=== PATIENT | male | born 1970 | race Caucasian/White ===

== ENCOUNTER 2017-08-18 23:11 | Emergency (ER) | payer SELFPAY ==
[2016-09-27 10:08] VITALS: Ht 185.4 cm; Wt 113.4 kg
[~2017-08-18] VITALS: Ht 185.4 cm; Wt 113.4 kg
[~2017-08-18 23:11] MED LIST: ATOR20TA22 PO; ATOR20TA65 PO; DIA5 PO; DIAZ-305 PO; FOL1 PO; HYDR-2966 PO; LORA-1456 PO; MULT-1379 PO; MULT-865 PO; MVM PO; NALT50TA15 PO; PRAV40TA77 PO; PROM-110 PO; SERT-184 PO; THIA50TA11 PO; TRAZ-156 PO
[2017-08-19] MEDS ORDERED: THIAMINE HCL(*) 200 MG/2 ML IN 100 MG, FOLIC ACID(*) 50 MG/10 ML INJ 1 MG, MULTIVITAMIN... IV ONE (01:30)
[2017-08-19] MEDS ORDERED: DIAZEPAM 10 MG TAB PO ONE (01:30)
[2017-08-19 01:47] LABS: PLATELET COUNT, AUTOMATED 242 K/uL (150-450)
--- NOTE | 2017-08-19 03:04 | ER Report ---
History and Physical Time Seen By MD: 01:00 Hx. of Stated Complaint: PT REPORTS THAT HE GOT OUT OF REHAB IN MAY. STARTED DRINKING AGAIN. IS WORRIED ABOUT HAVING SEIZURES. DOES NOT WANT TO GO BACK TO S. HPI/ROS History of alcohol use and abuse with multiple failed rehabilitation attempts. He was most recently discharged from inpatient rehabilitation in May. States he started drinking daily again in early June. Presents to the emergency department stating that he is trying to self detox and he has been experiencing facial twitching which makes him more in that he is going to go into DTs. Says he last drank 13 hours ago. Does not want to go to detox and behavioral health, and does not want to go back to inpatient rehabilitation. Remainder of the 14 system rev: Yes Allergies: Coded Allergies: No Known Drug Allergies (Verified , 08/18/17) Home Meds Discontinued Reported Medications Trazodone Hcl (TRAZODONE HCL) 50 Mg Tablet, 50-150 MG PO QHS 04/27/17 Sertraline Hcl (SERTRALINE HCL) 50 Mg Tablet, 150 MG PO QAM, TAB 06/25/16 Reviewed Nurses Notes: Yes Old Medical Records Reviewed: Yes Hx Smoking: No Smoking Status: Never Smoker Exposure to Second Hand Smoke?: No Hx Substance Use Disorder: Yes Hx Alcohol Use: Yes Constitutional Vital Sign - Last 24 Hours 08/18/17 08/18/17 08/18/17 08/19/17 23:19 23:30 23:45 00:00 Temp 99.6 Pulse 117 106 101 Resp 14 B/P (MAP) 148/117 131/99 (110) 127/82 (97) Pulse Ox 98 91 89 O2 Delivery Room Air 08/19/17 08/19/17 08/19/17 08/19/17 00:30 00:45 01:00 01:07 Pulse 97 98 B/P (MAP) 133/86 (102) 135/94 (108) Pulse Ox 91 92 95 08/19/17 08/19/17 01:35 01:42 Pulse 106 Resp 15 B/P (MAP) 156/104 (121) Pulse Ox 92 Physical Exam General Appearance: The patient is alert, has no immediate need for airway protection. Appears intoxicated Respiratory: Chest is non tender, lungs are clear to auscultation. Cardiac: regular rate and rhythm Gastrointestinal: Abdomen is soft and non tender, no masses, bowel sounds normal. Extremities have full range of motion and are non tender. Tremulous Skin: Multiple areas of wounds at different stages of healing DIFFERENTIAL DIAGNOSIS: After history and physical exam differential diagnosis was considered for acute alcohol intoxication, alcohol withdrawal, other ingestions Medical Decision Making Data Points Result Diagram: 08/19/1713908/19/17139 Laboratory Hematology Test 08/19/17 01:40 Red Blood Count 5.94 M/uL (4.00-5.60) Mean Corpuscular Volume 92.1 fL (80.0-96.0) Mean Corpuscular Hemoglobin 31.6 pg (26.0-33.0) Mean Corpuscular Hemoglobin Concent 34.3 g/dL (32.0-36.0) Red Cell Distribution Width 13.4 % (11.5-14.5) Mean Platelet Volume 7.6 fL (7.2-11.1) Neutrophils (%) (Auto) 56.5 % (39.4-72.5) Lymphocytes (%) (Auto) 34.3 % (17.6-49.6) Monocytes (%) (Auto) 8.0 % (4.1-12.4) Eosinophils (%) (Auto) 0.2 % (0.4-6.7) Basophils (%) (Auto) 1.0 % (0.3-1.4) Nucleated RBC Relative Count (auto) 0.1 /100WBC Neutrophils # (Auto) 4.4 K/uL (2.0-7.4) Lymphocytes # (Auto) 2.7 K/uL (1.3-3.6) Monocytes # (Auto) 0.6 K/uL (0.3-1.0) Eosinophils # (Auto) 0.0 K/uL (0.0-0.5) Basophils # (Auto) 0.1 K/uL (0.0-0.1) Nucleated RBC Absolute Count (auto) 0.01 K/uL Sodium Level 144 mmol/L (137-145) Potassium Level 4.0 mmol/L (3.5-5.0) Chloride Level 102 mmol/L (98-107) Carbon Dioxide Level 25 mmol/L (22-30) Blood Urea Nitrogen 13 mg/dl (9-21) Creatinine 0.90 mg/dl (0.66-1.25) Glomerular Filtration Rate Calc > 60.0 Random Glucose 117 mg/dl (75-110) Calcium Level 8.9 mg/dl (8.4-10.2) Magnesium Level 2.0 mg/dl (1.7-2.2) Total Bilirubin 1.0 mg/dl (0.2-1.3) Aspartate Amino Transf (AST/SGOT) 66 U/L (0-35) Alanine Aminotransferase (ALT/SGPT) 67 U/L (0-56) Alkaline Phosphatase 125 U/L (0-126) Total Protein 8.4 gm/dl (6.3-8.2) Albumin 4.6 g/dl (3.5-5.0) Serum Alcohol 329 mg/dl Chemistry Test 08/19/17 01:40 White Blood Count 7.8 k/uL (4.5-11.0) Red Blood Count 5.94 M/uL (4.00-5.60) Hemoglobin 18.8 g/dL (14.0-18.0) Hematocrit 54.7 % (42.0-52.0) Mean Corpuscular Volume 92.1 fL (80.0-96.0) Mean Corpuscular Hemoglobin 31.6 pg (26.0-33.0) Mean Corpuscular Hemoglobin Concent 34.3 g/dL (32.0-36.0) Red Cell Distribution Width 13.4 % (11.5-14.5) Platelet Count 242 K/uL (150-450) Mean Platelet Volume 7.6 fL (7.2-11.1) Neutrophils (%) (Auto) 56.5 % (39.4-72.5) Lymphocytes (%) (Auto) 34.3 % (17.6-49.6) Monocytes (%) (Auto) 8.0 % (4.1-12.4) Eosinophils (%) (Auto) 0.2 % (0.4-6.7) Basophils (%) (Auto) 1.0 % (0.3-1.4) Nucleated RBC Relative Count (auto) 0.1 /100WBC Neutrophils # (Auto) 4.4 K/uL (2.0-7.4) Lymphocytes # (Auto) 2.7 K/uL (1.3-3.6) Monocytes # (Auto) 0.6 K/uL (0.3-1.0) Eosinophils # (Auto) 0.0 K/uL (0.0-0.5) Basophils # (Auto) 0.1 K/uL (0.0-0.1) Nucleated RBC Absolute Count (auto) 0.01 K/uL Glomerular Filtration Rate Calc > 60.0 Calcium Level 8.9 mg/dl (8.4-10.2) Magnesium Level 2.0 mg/dl (1.7-2.2) Total Bilirubin 1.0 mg/dl (0.2-1.3) Aspartate Amino Transf (AST/SGOT) 66 U/L (0-35) Alanine Aminotransferase (ALT/SGPT) 67 U/L (0-56) Alkaline Phosphatase 125 U/L (0-126) Total Protein 8.4 gm/dl (6.3-8.2) Albumin 4.6 g/dl (3.5-5.0) Serum Alcohol 329 mg/dl Toxicology Test 08/19/17 01:40 Serum Alcohol 329 mg/dl ED Course/Re-evaluation ED Course Presents to the emergency department stating that he is trying to self detox from alcohol and is feeling shaky and experiencing muscle twitching and is worried he is going into DTs. Said he had not drank for over 12 hours. Alcohol level in the 300s. Patient exhibits jerking movements, given alcohol level not consistent with DTs. He is now clinically sober and has a ride home with his mom who will pick him up from the emergency department. I encouraged him to be admitted for detox and to return to inpatient rehabilitation, but the patient refused. Decision to Disposition Date: Aug 19, 2017 Decision to Disposition Time: 03:02 Depart Departure Latest Vital Signs Vital Signs Date Time Temp Pulse Resp B/P (MAP) Pulse Ox O2 Delivery O2 Flow Rate FiO2 08/19/17 01:42 106 15 92 08/19/17 01:35 156/104 (121) 08/18/17 23:19 99.6 Room Air Impression: Primary Impression: Alcohol dependence syndrome Condition: Improved Disposition: HOME OR SELF-CARE New Scripts No Active Prescriptions or Reported Meds Patient Instructions: Alcohol Dependence (ED) Problem Qualifiers Primary Impression: Alcohol dependence syndrome Substance use status: with intoxication Complication of substance-induced condition: uncomplicated Qualified Codes: F10.220 - Alcohol dependence with intoxication, uncomplicated NEELAM MAXWELL MD Aug 19, 2017 03:04
[2017-08-19 03:15] VITALS: BP 136/88
== END 2017-08-19 03:25 | disposition home or self-care (01) ==
LOC: ER 23:21
DX: F10.220 Alcohol dependence with intoxication, uncomplicated (principal)
CPT/HCPCS: 80320; 83735; 85025; 96365; 99284; J3411; J3475; J7030; 82040; 82247; 82310; 82374; 82435; 82565; 82947; 84075; 84132; 84155; 84295; 84450; 84460; 84520

== ENCOUNTER 2018-02-23 13:21 | Emergency (ER) | payer SELFPAY ==
[2016-09-27 10:08] VITALS: BMI 37.6
[~2018-02-23 13:21] MED LIST changes: -TRAZ-156 PO; +TRAZ50TA34 PO
[2018-02-23] MEDS ORDERED: NALT50TA15 PO (13:39)
[2018-02-23] MEDS ORDERED: SERT-181 PO (13:39)
[2018-02-23] MEDS ORDERED: THIAMINE HCL(*) 200 MG/2 ML IN 100 MG, FOLIC ACID(*) 50 MG/10 ML INJ 1 MG, MULTIVITAMIN... IV ONE (13:39)
[2018-02-23] MEDS ORDERED: DIAZEPAM 50 MG/10 ML MDV IVP ONE (13:40)
--- NOTE | 2018-02-23 13:40 | ER Report ---
History and Physical Time Seen By MD: 13:40 Hx. of Stated Complaint: pt has been drinking about a 5th of whiskey daily for the past 7 days. pt states he has a drinking problem and has been up to [facility] for detox in the past. HPI/ROS Chief Complaint: "detox" HPI: 47-year-old male presents to the Emergency Department today after failing to detox from alcohol in the home setting. He reports a long history of alcohol abuse with binge drinking starting when he was [id number]. States, he has attempted to stop drinking multiple times and has stayed in [facility] three times in the past. Reports drinking a "fifth of alcohol per day." He reports he started experiencing chest tightness and inability to swallow at which point he decided to come into the ER. The chest pain and difficulty swallowing resolved spontaneously and he is not currently feeling symptoms. Patient denies any shortness of breath, any pain with inspiration. Patient states that he was mostly concerned because he was unable swallow. ROS: Respiratory: No cough, no dyspnea. Cardiovascular: As noted above Gastrointestinal: As noted above Musculoskeletal: No back pain. Allergies: Coded Allergies: No Known Drug Allergies (Verified , 08/18/17) Home Meds Reported Medications Melatonin (MELATONIN) 10 Mg Tablet, 10 MG PO QHS 02/23/18 Naltrexone Hcl (NALTREXONE HCL) 50 Mg Tablet, 50 MG PO QDAY 02/23/18 Sertraline Hcl (SERTRALINE HCL) 100 Mg Tablet, 150 MG PO QDAY, TAB 02/23/18 Past Medical/Surgical History Patient has a past medical history of seizures, headaches, hypertension, hyperlipidemia, reflux, tinnitus, substance abuse, alcohol abuse, depression, anxiety, cutting. Patient has surgical history of left hand surgery, left knee surgery, LASIK surgery. Reviewed Nurses Notes: Yes Hx Smoking: No Smoking Status: Never Smoker Exposure to Second Hand Smoke?: No Hx Substance Use Disorder: Yes Hx Alcohol Use: Yes Constitutional Vital Sign - Last 24 Hours 02/23/18 02/23/18 02/23/18 02/23/18 13:25 13:36 13:40 13:41 Temp 98.1 Pulse 148 84 86 Resp 22 B/P (MAP) 145/100 (115) 145/100 (115) Pulse Ox 92 96 02/23/18 02/23/18 02/23/18 02/23/18 13:51 14:00 14:06 14:21 Pulse 90 86 85 B/P (MAP) 154/104 (121) Pulse Ox 91 93 93 02/23/18 02/23/18 02/23/18 02/23/18 14:30 14:51 14:56 15:00 Pulse 79 77 B/P (MAP) 146/93 (110) 140/87 (104) Pulse Ox 94 95 02/23/18 02/23/18 02/23/18 02/23/18 15:11 15:26 15:30 15:41 Pulse 78 83 81 B/P (MAP) 144/92 (109) Pulse Ox 94 88 96 Intake and Output 02/23/18 02/23/18 02/24/18 14:59 22:59 06:59 Intake Total 850 ml Balance 850 ml Physical Exam General Appearance: The patient is alert, has no immediate need for airway protection and no current signs of toxicity. Respiratory: Chest is non tender, lungs are clear to auscultation. Cardiac: regular rate and rhythm Gastrointestinal: Abdomen is soft and non tender, no masses, bowel sounds normal. Musculoskeletal: Neck: Neck is supple and non tender. Extremities have full range of motion and are non tender. Skin: No rashes or lesions. DIFFERENTIAL DIAGNOSIS: After history and physical exam differential diagnosis was considered for depression, alcohol abuse, reflux, [place], pneumonia. Medical Decision Making Data Points Result Diagram: 02/23/18 1335 02/23/18 1335 Laboratory Hematology Test 02/23/18 13:23 02/23/18 13:35 Urine Color Yellow Urine Clarity Clear Urine pH 7.0 pH (4.8-9.5) Urine Specific [place] 1.009 Urine Protein 100 mg/dL (NEGATIVE) Urine Glucose (UA) Negative mg/dL (NEGATIVE) Urine Ketones Negative mg/dL (NEGATIVE) Urine Blood Negative (NEGATIVE) Urine Nitrite Negative (NEGATIVE) Urine Bilirubin Negative (NEGATIVE) Urine Urobilinogen Negative mg/dL (0.2-1.9) Urine Leukocyte Esterase Negative (NEGATIVE) Urine RBC <1 /HPF (0-2/HPF) Urine WBC 1 /HPF (0-5/HPF) Urine Squamous Epithelial Cells Moderate /LPF (</=FEW) Urine Bacteria Negative /HPF (NONE-FEW) Urine Mucus None /HPF (NONE-FEW) Urine Opiates Screen Negative Urine Barbiturates Screen Negative Ur Tricyclic Antidepressants Screen Negative Urine Phencyclidine Screen Negative Urine Amphetamines Screen Negative Urine Benzodiazepines Screen Negative Urine Cocaine Screen Negative Urine Cannabinoids Screen Negative Red Blood Count 5.29 M/uL (4.00-5.60) Mean Corpuscular Volume 92.4 fL (80.0-96.0) Mean Corpuscular Hemoglobin 32.0 pg (26.0-33.0) Mean Corpuscular Hemoglobin Concent 34.6 g/dL (32.0-36.0) Red Cell Distribution Width 13.6 % (11.5-14.5) Mean Platelet Volume 7.9 fL (7.2-11.1) Neutrophils (%) (Auto) 80.0 % (39.4-72.5) Lymphocytes (%) (Auto) 13.5 % (17.6-49.6) Monocytes (%) (Auto) 5.8 % (4.1-12.4) Eosinophils (%) (Auto) 0.1 % (0.4-6.7) Basophils (%) (Auto) 0.6 % (0.3-1.4) Nucleated RBC Relative Count (auto) 0.2 /100WBC Neutrophils # (Auto) 6.0 K/uL (2.0-7.4) Lymphocytes # (Auto) 1.0 K/uL (1.3-3.6) Monocytes # (Auto) 0.4 K/uL (0.3-1.0) Eosinophils # (Auto) 0.0 K/uL (0.0-0.5) Basophils # (Auto) 0.0 K/uL (0.0-0.1) Nucleated RBC Absolute Count (auto) 0.01 K/uL Sodium Level 141 mmol/L (137-145) Potassium Level 3.5 mmol/L (3.5-5.0) Chloride Level 100 mmol/L (98-107) Carbon Dioxide Level 21 mmol/L (22-30) Blood Urea Nitrogen 8 mg/dl (9-21) Creatinine 0.70 mg/dl (0.66-1.25) Glomerular Filtration Rate Calc > 60.0 Random Glucose 106 mg/dl (75-110) Calcium Level 8.8 mg/dl (8.4-10.2) Magnesium Level 1.8 mg/dl (1.7-2.2) Total Bilirubin 1.2 mg/dl (0.2-1.3) Aspartate Amino Transf (AST/SGOT) 103 U/L (0-35) Alanine Aminotransferase (ALT/SGPT) 100 U/L (0-56) Alkaline Phosphatase 106 U/L (0-126) Troponin I < 0.012 ng/ml Total Protein 7.7 g/dl (6.3-8.2) Albumin 4.6 g/dl (3.5-5.0) Thyroid Stimulating Hormone (TSH) 4.12 uIU/ml (0.46-4.68) Salicylates Level < 10 mg/L Salicylate Last Dose Date unk Acetaminophen Level < 10 ug/ml Serum Alcohol 93 mg/dl Chemistry Test 02/23/18 13:23 02/23/18 13:35 Urine Color Yellow Urine Clarity Clear Urine pH 7.0 pH (4.8-9.5) Urine Specific [place] 1.009 Urine Protein 100 mg/dL (NEGATIVE) Urine Glucose (UA) Negative mg/dL (NEGATIVE) Urine Ketones Negative mg/dL (NEGATIVE) Urine Blood Negative (NEGATIVE) Urine Nitrite Negative (NEGATIVE) Urine Bilirubin Negative (NEGATIVE) Urine Urobilinogen Negative mg/dL (0.2-1.9) Urine Leukocyte Esterase Negative (NEGATIVE) Urine RBC <1 /HPF (0-2/HPF) Urine WBC 1 /HPF (0-5/HPF) Urine Squamous Epithelial Cells Moderate /LPF (</=FEW) Urine Bacteria Negative /HPF (NONE-FEW) Urine Mucus None /HPF (NONE-FEW) Urine Opiates Screen Negative Urine Barbiturates Screen Negative Ur Tricyclic Antidepressants Screen Negative Urine Phencyclidine Screen Negative Urine Amphetamines Screen Negative Urine Benzodiazepines Screen Negative Urine Cocaine Screen Negative Urine Cannabinoids Screen Negative White Blood Count 7.5 k/uL (4.5-11.0) Red Blood Count 5.29 M/uL (4.00-5.60) Hemoglobin 16.9 g/dL (14.0-18.0) Hematocrit 48.9 % (42.0-52.0) Mean Corpuscular Volume 92.4 fL (80.0-96.0) Mean Corpuscular Hemoglobin 32.0 pg (26.0-33.0) Mean Corpuscular Hemoglobin Concent 34.6 g/dL (32.0-36.0) Red Cell Distribution Width 13.6 % (11.5-14.5) Platelet Count 228 K/uL (150-450) Mean Platelet Volume 7.9 fL (7.2-11.1) Neutrophils (%) (Auto) 80.0 % (39.4-72.5) Lymphocytes (%) (Auto) 13.5 % (17.6-49.6) Monocytes (%) (Auto) 5.8 % (4.1-12.4) Eosinophils (%) (Auto) 0.1 % (0.4-6.7) Basophils (%) (Auto) 0.6 % (0.3-1.4) Nucleated RBC Relative Count (auto) 0.2 /100WBC Neutrophils # (Auto) 6.0 K/uL (2.0-7.4) Lymphocytes # (Auto) 1.0 K/uL (1.3-3.6) Monocytes # (Auto) 0.4 K/uL (0.3-1.0) Eosinophils # (Auto) 0.0 K/uL (0.0-0.5) Basophils # (Auto) 0.0 K/uL (0.0-0.1) Nucleated RBC Absolute Count (auto) 0.01 K/uL Glomerular Filtration Rate Calc > 60.0 Calcium Level 8.8 mg/dl (8.4-10.2) Magnesium Level 1.8 mg/dl (1.7-2.2) Total Bilirubin 1.2 mg/dl (0.2-1.3) Aspartate Amino Transf (AST/SGOT) 103 U/L (0-35) Alanine Aminotransferase (ALT/SGPT) 100 U/L (0-56) Alkaline Phosphatase 106 U/L (0-126) Troponin I < 0.012 ng/ml Total Protein 7.7 g/dl (6.3-8.2) Albumin 4.6 g/dl (3.5-5.0) Thyroid Stimulating Hormone (TSH) 4.12 uIU/ml (0.46-4.68) Salicylates Level < 10 mg/L Salicylate Last Dose Date unk Acetaminophen Level < 10 ug/ml Serum Alcohol 93 mg/dl Toxicology Test 02/23/18 13:23 02/23/18 13:35 Urine Opiates Screen Negative Urine Barbiturates Screen Negative Ur Tricyclic Antidepressants Screen Negative Urine Phencyclidine Screen Negative Urine Amphetamines Screen Negative Urine Benzodiazepines Screen Negative Urine Cocaine Screen Negative Urine Cannabinoids Screen Negative Salicylates Level < 10 mg/L Salicylate Last Dose Date unk Acetaminophen Level < 10 ug/ml Serum Alcohol 93 mg/dl Urinalysis Test 02/23/18 13:23 Urine Color Yellow Urine Clarity Clear Urine pH 7.0 pH (4.8-9.5) Urine Specific [place] 1.009 Urine Protein 100 mg/dL (NEGATIVE) Urine Glucose (UA) Negative mg/dL (NEGATIVE) Urine Ketones Negative mg/dL (NEGATIVE) Urine Blood Negative (NEGATIVE) Urine Nitrite Negative (NEGATIVE) Urine Bilirubin Negative (NEGATIVE) Urine Urobilinogen Negative mg/dL (0.2-1.9) Urine Leukocyte Esterase Negative (NEGATIVE) Urine RBC <1 /HPF (0-2/HPF) Urine WBC 1 /HPF (0-5/HPF) Urine Squamous Epithelial Cells Moderate /LPF (</=FEW) Urine Bacteria Negative /HPF (NONE-FEW) Urine Mucus None /HPF (NONE-FEW) EKG/Imaging EKG Interpretation 12 lead EKG: Rhythm: normal sinus rhythm with a ventricular rate of 82 bpm [place]: normal QRS: normal ST segments: normal Patient has a prolonged QT with a QT measuring 410 ms Imaging CHEST PA AND LAT Indication: chest pain Comparison: Chest x-ray 09/03/2016. Findings: Lungs: Clear. Mediastinum/pulmonary vasculature: Heart size and pulmonary vasculature are normal. Bones/soft tissues: Normal. IMPRESSION: Clear lungs. Report Dictated By: Gio Rose at 02/23/2018 2:53 PM Report E-Signed By: Gio Rose at 02/23/2018 2:54 PM ED Course/Re-evaluation ED Course Patient was admitted and examined, history and physical were obtained. Differential diagnoses were considered. The normal lab work for a behavioral health admission were done. Also an EKG, chest x-ray and a troponin were done. The labs for the behavioral health admission were unremarkable except the patient did have a an elevated AST of 103, ALT of 100. Troponin was negative. EKG showed a normal sinus rhythm. I believe that the chest pain was likely secondary to gastritis and esophagitis secondary to his binge drinking. I discussed the case with Dr. Paz, psychiatrist, who except the patient for admission. Dr. Paz did ask the patient had been doing any self harm her cutting. There are no signs of that on this evaluation or admission. Decision to Disposition Date: Feb 23, 2018 Decision to Disposition Time: 14:52 Depart Departure Latest Vital Signs Vital Signs Date Time Temp Pulse Resp B/P (MAP) Pulse Ox O2 Delivery O2 Flow Rate FiO2 02/23/18 15:41 81 96 02/23/18 15:30 144/92 (109) 02/23/18 13:25 98.1 22 Impression: Primary Impression: Alcohol dependence syndrome Condition: Condition Unchanged Disposition: XFER TO [facility] Problem Qualifiers Primary Impression: Alcohol dependence syndrome Substance use status: uncomplicated Qualified Codes: F10.20 - Alcohol dependence, uncomplicated CHERRIE SIMON Feb 23, 2018 13:40
[2018-02-23 13:53] LABS: PLATELET COUNT, AUTOMATED 228 K/uL (150-450)
--- NOTE | 2018-02-23 14:15 | EKG ---
[facility]AC[facility] PATIENT NAME: JOSS VEGA : [id number] MR: [id number] V: [id number] EXAM DATE: ORDERING PHYSICIAN: CHERRIE SIMON TECHNOLOGIST: Test Reason : Blood Pressure : / mmHG Vent. Rate : 083 BPM Atrial Rate : 083 BPM P-R Int : 178 ms QRS Dur : 090 ms QT Int : 410 ms P-R-T Axes : 036 027 021 degrees QTc Int : 481 ms Normal sinus rhythm Prolonged QT Abnormal ECG When compared with ECG of 08-NOV-2016 05:54, No significant change was found Confirmed by KAM LÓPEZ ([id number]) on 02/23/2018 9:57:59 PM Referred By: Confirmed By:KAM LÓPEZ
--- NOTE | 2018-02-23 14:57 | RADIOLOGY IMAGING REPORT ---
FACILITY: [facility] PATIENT NAME: Obie Valencia : 1970 MR: [id number] V: [id number] EXAM DATE: ORDERING PHYSICIAN: CHERRIE SIMON TECHNOLOGIST: Location: [facility] [place] Patient: Obie Valencia : 1970 Visit/Account:[id number] Date of Sevice: 02/23/2018 CHEST PA AND LAT Indication: chest pain Comparison: Chest x-ray 09/03/2016. Findings: Lungs: Clear. Mediastinum/pulmonary vasculature: Heart size and pulmonary vasculature are normal. Bones/soft tissues: Normal. IMPRESSION: Clear lungs. Report Dictated By: Gio Rose at 02/23/2018 2:53 PM Report E-Signed By: Gio Rose at 02/23/2018 2:54 PM WSN:[id number]
[2018-02-23 15:30] VITALS: BP 144/92
[2018-02-23] MEDS ORDERED: MELA10TA2 PO (17:49)
[2018-02-26] MEDS ORDERED: THIA100T2 PO (10:23)
== END 2018-02-23 15:58 ==
LOC: ER 13:28
DX: F10.20 Alcohol dependence, uncomplicated (principal)
CPT/HCPCS: 71046; 80305; 80320; 80329; 81001; 83735; 84443; 84484; 85025; 93005; 96365; 96366; 96375; 99284; J3360; J3411; J3475; J7030; 82040; 82247; 82310; 82374; 82435; 82565; 82947; 84075; 84132; 84155; 84295; 84450; 84460; 84520

== ENCOUNTER 2018-02-23 15:01 | Inpatient (IN) | payer SELFPAY ==
[2016-09-27 10:08] VITALS: Ht 185.4 cm; Wt 108.9 kg
[~2018-02-23] VITALS: Ht 185.4 cm; Wt 108.9 kg
[~2018-02-23 15:01] MED LIST changes: +SERT-181 PO
[2018-02-23 16:00] VITALS: BP 167/112
[2018-02-23] MEDS: DIAZEPAM 10 MG TAB PO PRN ×7 (16:24→22:47)
[2018-02-23] MEDS: MAG HYD/AL HYD/SIMETH 30ML UDC PO PRN (16:41)
[2018-02-23] MEDS ORDERED: MELA10TA2 PO (17:49)
[2018-02-23 19:35] VITALS: BP 154/112
[2018-02-23] MEDS: MELATONIN 3 MG TAB PO SCH (21:40)
[2018-02-23 23:10] VITALS: BP 149/97
[2018-02-24 03:50] VITALS: BP 147/100
[2018-02-24 07:55] VITALS: BP 132/81
[2018-02-24] MEDS: FOLIC ACID 1 MG TAB PO SCH (08:13)
[2018-02-24] MEDS: NALTREXONE HCL 50 MG TAB PO SCH (08:13)
[2018-02-24] MEDS: THIAMINE HCL 100 MG TAB PO SCH (08:13)
[2018-02-24] MEDS: MULTIVITAMINS TAB PO SCH (08:13)
[2018-02-24] MEDS: SERTRALINE HCL 50 MG TAB PO SCH (08:14)
[2018-02-24] MEDS: DIAZEPAM 10 MG TAB PO PRN ×3 (08:14→22:05)
[2018-02-24 12:10] VITALS: BP 150/105
[2018-02-24] MEDS: IBUPROFEN 600 MG TAB PO PRN (13:20)
--- NOTE | 2018-02-24 16:28 | HISTORY AND PHYSICAL ---
DATE OF ADMISSION: February 23, 2018 Patient was seen approximately 24 February 2018 at 1200 hours for note concerning this dictation. PRESENTING PROBLEM/CHIEF COMPLAINT Alcohol withdrawal. HISTORY OF PRESENT ILLNESS This is a fairly well-known 47-year-old male, very pleasant, cooperative, notably last admission under similar circumstances was in April 2017. Patient had [facility] out [facility] or five months ago where he had been there for about five weeks. He stayed sober for a week or two until recently drinking. 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 He knows that he cannot drink and drive. Patient wants to get alcohol withdrawal under complete and return to work by Tuesday. 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 Patient denies any other significant concerns of depression at this time. Patient does have a history of underlying persistent depressive disorder and does currently remain on Zoloft. Patient has a history of some cutting behaviors as an adult. Please see previous records. Patient states he is no longer engaging in these behaviors. Patient adamantly denies any suicidal ideation, denies any other psychiatric concerns. MENTAL HEALTH HISTORY Patient has a long history of alcohol use disorder which is severe in nature. Patient has completed substance abuse program in [place] at the [facility] in 2005. He has attended intensive outpatient programs at the [facility] in the past. Patient has most recently completed a stent at [facility] in [place] as well. Patient does continue to see outpatient providers through the [facility] at times. Patient is not believed to be going to [facility] at this time, although he has in the past. Patient has remained on sertraline and naltrexone. He has not been taking trazodone previously prescribed in a few months. Patient denying any suicidal ideation at this time. FAMILY PSYCHIATRIC HISTORY Unknown concerning this patient at time of this dictation. PAST MEDICAL HISTORY Believed to be largely unremarkable at this time. MEDICATIONS Patient not on any medications. ALLERGIES Patient denying any allergies. SOCIAL HISTORY Patient born in [facility]. Father worked in a government job as a civilian. Patient graduated high school in [place]. He was primarily raised [place]. Patient has been living in [place] by himself. He has never , has no children. No significant other currently. Patient has had contact with his sisters and parents in the past who are believed to be living in [place]. 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 Patient has had multiple admissions here, the last in the fall of 2016. 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 He does not have any service-connected disabilities. He does continue to follow up with them. LEGAL HISTORY Significant for history of three DUIs, one in 1986, 1997, and 1999. Patient has spent time in care home for these. He denies felony or other recent charges. SUBSTANCE ABUSE HISTORY Patient continues to drink whiskey at this time. He has previously tried cocaine, crack, and marijuana in the remote past. He has no current use of illicit drugs. Patient denies any experience of sexual, emotional, or physical abuse growing up. PHYSICAL EXAMINATION Please see emergency room note. Notable for: GENERAL: Cooperative 47-year-old male started into alcohol withdrawal. VITAL SIGNS: Temperature is 98.1, pulse 148, respiratory rate 20, blood pressure 145/100, pulse oximetry 92% on room air at time of admission. LABORATORY DATA CBC was unremarkable overall. CMP notable for AST and ALT 103 and 100, both elevated. Troponins were negative. TSH 4.12. Urinalysis unremarkable except for urine protein notable, and toxicology screen negative for substances of abuse with a serum alcohol level of 93 at time of admission. MENTAL STATUS EXAMINATION GENERAL APPEARANCE, BEHAVIOR, AND ATTITUDE: This is a polite, cooperative, 47- year-old male being actively treated for alcohol withdrawal at time of initial interview. No psychomotor agitation or retardation. No bizarre mannerisms or tics. Patient not tearful, making good eye contact. SPEECH: Within normal limits. Regular rate, rhythm, volume, and tone. MOOD: Described as frustrated with alcoholism. AFFECT: Minimally constricted at times and mood congruent. THOUGHT PROCESSES: Logical, goal directed. No loose associations or flight of ideas. THOUGHT CONTENT: Free of auditory or visual hallucinations, ideas of reference , thought broadcasting, delusions, obsessions, compulsions. Patient adamantly denying suicidal or homicidal ideations. SENSORIUM: Clear. COGNITION: Alert and oriented to person, place, time, situation. MEMORY: Immediate, recent, and remote estimated intact. INTELLIGENCE: Average based on interview. INSIGHT AND JUDGMENT: Considered grossly intact in the absence of alcohol use. ASSESSMENT This is a well-known 47-year-old male suffering from longstanding alcohol use. Patient has been to multiple residential treatment programs in the past. At this time, patient wishes to complete alcohol withdrawal and return to working at his new job. Will work with patient to get alcohol withdrawal complete once again and educate patient further on how to abstain from alcohol on an outpatient basis. DIAGNOSES PER DIAGNOSTIC AND STATISTICAL MANUAL OF MENTAL DISORDERS, FIFTH EDITION 1. Alcohol intoxication. 2. Alcohol use disorder, severe. 3. Alcohol withdrawal. 4. History of persisting depressive disorder. 5. Social stressors related to alcohol use. PLAN 1. Admit to the unit. 2. Necessary precautions to be implemented. 3. Patient will participate in individual and group therapy. 4. Medications will be adjusted and titrated accordingly. 5. Collateral information to be obtained as necessary. 6. Estimated length of stay three days. MTDD
[2018-02-24 17:25] VITALS: BP 146/95
[2018-02-24] MEDS: MAG HYD/AL HYD/SIMETH 30ML UDC PO PRN (19:42)
[2018-02-24] MEDS: MELATONIN 3 MG TAB PO SCH (21:30)
[2018-02-24 21:41] VITALS: BP 144/110
[2018-02-25 06:19] VITALS: BP 134/87
[2018-02-25] MEDS: SERTRALINE HCL 50 MG TAB PO SCH (08:22)
[2018-02-25] MEDS: NALTREXONE HCL 50 MG TAB PO SCH (08:22)
[2018-02-25] MEDS: THIAMINE HCL 100 MG TAB PO SCH (08:22)
[2018-02-25] MEDS: MULTIVITAMINS TAB PO SCH (08:22)
[2018-02-25] MEDS: FOLIC ACID 1 MG TAB PO SCH (08:22)
[2018-02-25] MEDS: IBUPROFEN 600 MG TAB PO PRN (08:25)
[2018-02-25 08:38] VITALS: BP 149/102
[2018-02-25] MEDS ORDERED: LOPERAMIDE HCL 2 MG CAP PO PRN (10:10)
[2018-02-25 12:18] VITALS: BP 148/107
--- NOTE | 2018-02-25 14:59 | BHS Progress Note ---
S - Subjective Progress Notes Subjective Pt seen in conference room with team. Pt denies c/o today. Detox is winding down-- last valium was at about 11 last night. BP's still elevated but other signs withdrawal are minimal. We discussed possibility that he may have some underlying hypertension, and he will follow up with [facility]. Discussed barriers to maintaining sobriety for him-- he says he knows he needs to spend less time alone, so we did some talking about ways that might work for him. He is hoping to get back to work on Tuesday-- will need to monitor till he is a full 24 hours out from last valium. He understands that we recommend that he not drive for 24 to 48 hours after discharge, given long half life of valium. Suicidal Ideation: None Homicidal Ideation: None [facility] - Objective Physical Exam Vital Signs Vital Signs 02/24/18 02/25/18 21:41 12:18 Temp 98.1 Pulse 81 Resp 18 B/P (MAP) 148/107 (121) Pulse Ox 95 O2 Delivery Room Air Muscle Strength and Tone: WNL Gait and Station: Steady BH Medications Reviewed: Side Effects, Benefits of Medication Allergies Reviewed: Yes Mental Status Exam General Appearance: Casual, Well Groomed, Good Eye Contact, Cooperative, Polite , Good Interaction Speech: Clear, Spontaneous, Normal Rate, Normal Rhythm, Normal Volume, Normal Tone Mood: Dysthmic/Depressed Affect: Calm, Neutral Thought Process: Organized, Logical, Goal Directed Thought Content: No Suicidal Ideation, No Homicidal Ideation, No Delusions, No Auditory Halllucinations, No Visual Hallucinations, No Thought Broadcasting, No Ideas of Reference, No Obsessions, No Compulsions, No Other Sensorium: Clear Cognition: Alert & Oriented-Person, Alert & Oriented-Place, Alert & Oriented- Time, Mazct-Urxiywba-Fectijehe Memory: Immediate, Recent, Remote Intelligence: Average Insight Judgment: Fair [facility] Assessment and Plan Tfco-ie-Rvie Encounter Date: Feb 25, 2018 [id number] Encounter Time: 10:15 [facility] Plan: Admit to Unit, Necessary Precautions, Individual/Group Therapy, Admin /Titrate Meds, Educate Patient Tobacco Medications: Not Appropriate Condition Problems: (1) Alcohol use disorder, severe, in controlled environment Status: Chronic (2) Alcohol withdrawal Status: Acute MANUELA MARIE MD Feb 25, 2018 14:59
[2018-02-25 16:14] VITALS: BP 117/83
[2018-02-25] MEDS: MELATONIN 3 MG TAB PO SCH (21:31)
[2018-02-26 06:12] VITALS: BP 123/83
[2018-02-26] MEDS: NALTREXONE HCL 50 MG TAB PO SCH (08:43)
[2018-02-26] MEDS: MULTIVITAMINS TAB PO SCH (08:43)
[2018-02-26] MEDS: SERTRALINE HCL 50 MG TAB PO SCH (08:43)
[2018-02-26] MEDS: FOLIC ACID 1 MG TAB PO SCH (08:43)
[2018-02-26] MEDS: THIAMINE HCL 100 MG TAB PO SCH (08:43)
[2018-02-26] MEDS: IBUPROFEN 600 MG TAB PO PRN (08:49)
[2018-02-26] MEDS ORDERED: FOLI-68 PO (10:16)
[2018-02-26] MEDS ORDERED: MULT-7 (10:17)
[2018-02-26] MEDS ORDERED: THIA100T2 PO ×2 (10:23)
[2018-02-26 12:35] VITALS: BP 138/88
--- NOTE | 2018-02-26 14:59 | BHS Discharge Summary ---
[facility] Discharge Summary Ezzx-yo-Dwje Encounter Date: Feb 26, 2018 [id number] Encounter Time: 08:45 Reason-Hosp/Final Diag (DSM-V): (1) Alcohol use disorder, severe, in controlled environment Status: Chronic Hospital Course & Plan: Pt was admitted to [facility] and placed on CIWA protocol using valium for detox. There were no complications. His BP ran high at first but normalized as detox completed. Pt participated actively in [place] activities and therapies, with a focus on sobriety. 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 He wants to follow up with his [facility] for meds and therapy which he does via telemedicine, but he will also look at getting back into face-to- face therapy with a therapist at the [facility], since he is working over there now. At no time during hospital stay did pt verbalize or acknowledge any SI. By Tuesday02/26/18 pt was stable for discharge; he was planning on attending an AA meeting this evening. (2) Alcohol withdrawal Status: Acute Physical Exam Latest Vital Signs Vital Signs 02/26/18 12:35 Temp 97.9 Pulse 66 Resp 16 B/P (MAP) 138/88 (105) Pulse Ox 95 O2 Delivery Room Air Mental Status Exam General Appearance: Casual, Well Groomed, Good Eye Contact, Cooperative, Polite , Good Interaction Speech: Clear, Spontaneous, Normal Rate, Normal Rhythm, Normal Volume, Normal Tone Mood: Dysthmic/Depressed Affect: Calm, Neutral Thought Process: Organized, Logical, Goal Directed Thought Content: No Suicidal Ideation, No Homicidal Ideation, No Delusions, No Auditory Halllucinations, No Visual Hallucinations, No Thought Broadcasting, No Ideas of Reference, No Obsessions, No Compulsions, No Other Sensorium: Clear Cognition: Alert & Oriented-Person, Alert & Oriented-Place, Alert & Oriented- Time, Jcihv-Ttqnqgdw-Fgykoabkw Memory: Immediate, Recent, Remote Intelligence: Average Insight Judgment: Fair Departure Condition: Improved Discharge to: Home Discharge Instructions Home Meds Reported Medications Thiamine Mononitrate (VITAMIN B-1) 100 Mg Tablet, 100 MG PO QAM 02/26/18 Multivits,Ca,Minerals/Iron/FA (Thera M Plus Tablet) 1 Each Tablet, QAM 02/26/18 Folic Acid (FOLIC ACID) 1 Mg Tablet, 1 MG PO QDAY, TAB 02/26/18 Melatonin (MELATONIN) 10 Mg Tablet, 10 MG PO QHS 02/23/18 Naltrexone Hcl (NALTREXONE HCL) 50 Mg Tablet, 50 MG PO QDAY 02/23/18 Sertraline Hcl (SERTRALINE HCL) 100 Mg Tablet, 150 MG PO QDAY, TAB 02/23/18 Discontinued Reported Medications Thiamine Mononitrate (VITAMIN B-1) 100 Mg Tablet, 100 MG PO QAM 02/26/18 Multpiple Antipsychotics Used: No Diet: Regular Activity: As Tolerated Special Instructions: Abstain from alcohol. Follow up with outpatient Therapist and Provider for Therapy and medication management. Follow up with AA. Call the crisis line at [phone] should symptoms return or return to nearest Emergency Department. MANUELA MARIE MD Feb 26, 2018 14:59
== END 2018-02-26 13:07 | disposition home or self-care (01) | DRG 897 ==
LOC: BHS 15:01
PROVIDERS: ADMIT Psychiatry & Neurology Psychiatry; ATTEND Psychiatry & Neurology Psychiatry
DX: F10.230 Alcohol dependence with withdrawal, uncomplicated (principal); F34.1 Dysthymic disorder
CPT/HCPCS: 83036

== ENCOUNTER 2018-06-07 05:32 | Emergency (ER) | payer SELFPAY ==
[2016-09-27 10:08] VITALS: Wt 104.3 kg
[~2018-06-07 05:32] MED LIST changes: +FOLI-68 PO; +MELA10TA2 PO; +MULT-7; +THIA100T2 PO
--- NOTE | 2018-06-07 05:47 | ER Report ---
History and Physical Time Seen By MD: 05:47 HPI/ROS CHIEF COMPLAINT: requesting alcohol detox. HISTORY OF PRESENT ILLNESS: This is a 47 year old male. He is here requesting detox from alcohol. He drinks heavily, about two large bottle daily. Last drink about 2 hours ago, but feeling very shaky at this time. REVIEW OF SYSTEMS: Constitutional: [No fever or chills.] Eyes: [No discharge.] [No vision changes.] ENT: [No sore throat.] [No congestion.] [No hearing changes.] Cardiovascular: [No chest pain.] [No palpitations.] Respiratory: [No cough.] [No shortness of breath.] Gastrointestinal: [No abdominal pain.] [No nausea or vomiting.] [No change in bowel movements.] [No blood in the stool or melena.] Genitourinary: [No dysuria.] [No hematuria.] [No frequency] Musculoskeletal: [No back pain.] [No extremity pain.] Skin: [No rashes.] [No bruising.] Neurological: [No numbness.] [No weakness.] [No headache.] Allergies: Coded Allergies: No Known Drug Allergies (Verified , 08/18/17) Home Meds Reported Medications [liver cleanse] No Conflict Check 06/07/18 Milk Thistle Seed Extract (MILK THISTLE) 140 Mg Capsule, 140 MG PO DAILY, CAPSULE 06/07/18 Multivits,Ca,Minerals/Iron/FA (Thera M Plus Tablet) 1 Each Tablet, QAM 02/26/18 Melatonin (MELATONIN) 10 Mg Tablet, 10 MG PO QHS 02/23/18 Naltrexone Hcl (NALTREXONE HCL) 50 Mg Tablet, 50 MG PO QDAY 02/23/18 Sertraline Hcl (SERTRALINE HCL) 100 Mg Tablet, 150 MG PO QDAY, TAB 02/23/18 Discontinued Reported Medications Thiamine Mononitrate (VITAMIN B-1) 100 Mg Tablet, 100 MG PO QAM 02/26/18 Folic Acid (FOLIC ACID) 1 Mg Tablet, 1 MG PO QDAY, TAB 02/26/18 Hx Smoking: No Smoking Status: Never Smoker Exposure to Second Hand Smoke?: No Hx Substance Use Disorder: Yes Hx Alcohol Use: Yes Constitutional Vital Sign - Last 24 Hours 06/07/18 06/07/18 06/07/18 06/07/18 05:39 05:42 06:00 06:30 Temp 98.3 Pulse 110 Resp 16 B/P (MAP) 127/107 127/107 (114) 97/73 (81) 141/86 (104) Pulse Ox 89 O2 Delivery Room Air 06/07/18 06/07/18 06/07/18 06/07/18 06:32 06:37 06:42 06:52 Pulse 98 101 99 Pulse Ox 90 92 93 87 O2 Delivery Room Air 06/07/18 06/07/18 06/07/18 06/07/18 07:00 07:07 07:22 07:30 Pulse 100 104 B/P (MAP) 119/84 (96) 120/83 (95) Pulse Ox 91 91 06/07/18 06/07/18 06/07/18 06/07/18 07:37 07:42 07:57 08:00 Pulse ??? 106 95 B/P (MAP) ???/??? (1665) Pulse Ox 94 92 06/07/18 06/07/18 06/07/18 06/07/18 08:12 08:27 08:30 08:42 Pulse 92 96 101 B/P (MAP) ???/??? (1665) Pulse Ox 96 94 94 06/07/18 06/07/18 06/07/18 06/07/18 08:57 09:00 09:12 09:27 Pulse 116 104 100 B/P (MAP) ???/??? (1665) Pulse Ox 93 95 96 06/07/18 06/07/18 06/07/18 06/07/18 09:32 09:47 10:02 10:17 Pulse ??? 118 ? Pulse Ox 96 87 06/07/18 06/07/18 10:32 10:47 Pulse ? Intake and Output 06/07/18 06/07/18 06/08/18 15:00 23:00 07:00 Intake Total 1000 ml Balance 1000 ml Physical Exam General Appearance: The patient is alert. He is shaky and having facial tics. Intoxicated. Eyes: Pupils are equal, round. No pallor or icterus. Extraocular movements are i ntact. Reactive to light. ENT: Mucous membranes are moist. Normal oral mucosa. Posterior oropharynx is normal. Neck: Supple and non tender. Respiratory: Lungs are clear to auscultation. Cardiovascular: Regular rate and rhythm. No murmurs, gallops or rubs. Normal capillary refill. Hypertensive. Gastrointestinal: Abdomen is soft and non tender. Nondistended. Normal active bowel sounds. Neurological: Alert and oriented x3. No focal neurologic deficits other than intoxication. Having some complex motor tics in the facial area. Skin: Warm and dry. No rashes. Musculoskeletal: Extremities are nontender. No tenderness in palpation of the cervical, thoracic and lumbar spine. DIFFERENTIAL DIAGNOSIS: After history and physical exam, differential diagnosis was considered for alcohol intoxication, requesting detox Medical Decision Making Data Points Result Diagram: 06/07/18 0416 06/07/18 0416 Laboratory Hematology Test 06/07/18 04:16 06/07/18 10:23 Red Blood Count 5.33 M/uL (4.00-5.60) Mean Corpuscular Volume 94.2 fL (80.0-96.0) Mean Corpuscular Hemoglobin 32.7 pg (26.0-33.0) Mean Corpuscular Hemoglobin Concent 34.7 g/dL (32.0-36.0) Red Cell Distribution Width 13.5 % (11.5-14.5) Mean Platelet Volume 7.7 fL (7.2-11.1) Neutrophils (%) (Auto) 62.1 % (39.4-72.5) Lymphocytes (%) (Auto) 27.0 % (17.6-49.6) Monocytes (%) (Auto) 9.9 % (4.1-12.4) Eosinophils (%) (Auto) 0.1 % (0.4-6.7) Basophils (%) (Auto) 0.9 % (0.3-1.4) Nucleated RBC Relative Count (auto) 0.0 /100WBC Neutrophils # (Auto) 3.8 K/uL (2.0-7.4) Lymphocytes # (Auto) 1.6 K/uL (1.3-3.6) Monocytes # (Auto) 0.6 K/uL (0.3-1.0) Eosinophils # (Auto) 0.0 K/uL (0.0-0.5) Basophils # (Auto) 0.1 K/uL (0.0-0.1) Nucleated RBC Absolute Count (auto) 0.00 K/uL Sodium Level 144 mmol/L (137-145) Potassium Level 3.6 mmol/L (3.5-5.0) Chloride Level 106 mmol/L (98-107) Carbon Dioxide Level 24 mmol/L (22-30) Blood Urea Nitrogen 17 mg/dl (9-21) Creatinine 0.80 mg/dl (0.66-1.25) Glomerular Filtration Rate Calc > 60.0 Random Glucose 115 mg/dl (75-110) Calcium Level 7.8 mg/dl (8.4-10.2) Magnesium Level 2.1 mg/dl (1.7-2.2) Total Bilirubin 0.8 mg/dl (0.2-1.3) Aspartate Amino Transf (AST/SGOT) 387 U/L (0-35) Alanine Aminotransferase (ALT/SGPT) 139 U/L (0-56) Alkaline Phosphatase 132 U/L (0-126) Total Protein 7.3 g/dl (6.3-8.2) Albumin 4.1 g/dl (3.5-5.0) Thyroid Stimulating Hormone (TSH) 3.01 uIU/ml (0.46-4.68) Salicylates Level < 10 mg/L Salicylate Last Dose Date unk Acetaminophen Level < 10 ug/ml Serum Alcohol 370 mg/dl Urine Color Yellow Urine Clarity Clear Urine pH 5.0 pH (4.8-9.5) Urine Specific [place] 1.013 Urine Protein 100 mg/dL (NEGATIVE) Urine Glucose (UA) Negative mg/dL (NEGATIVE) Urine Ketones Negative mg/dL (NEGATIVE) Urine Blood Small (NEGATIVE) Urine Nitrite Negative (NEGATIVE) Urine Bilirubin Negative (NEGATIVE) Urine Urobilinogen Negative mg/dL (0.2-1.9) Urine Leukocyte Esterase Negative (NEGATIVE) Urine RBC 1 /HPF (0-2/HPF) Urine WBC 1 /HPF (0-5/HPF) Urine Squamous Epithelial Cells Few /LPF (</=FEW) Urine Bacteria Few /HPF (NONE-FEW) Urine Hyaline Casts Many /LPF (NONE-FEW) Urine Mucus Few /HPF (NONE-FEW) Urine Opiates Screen Negative Urine Barbiturates Screen Negative Ur Tricyclic Antidepressants Screen Negative Urine Phencyclidine Screen Negative Urine Amphetamines Screen Negative Urine Benzodiazepines Screen Negative Urine Cocaine Screen Negative Urine Cannabinoids Screen Negative Chemistry Test 06/07/18 04:16 06/07/18 10:23 White Blood Count 6.1 k/uL (4.5-11.0) Red Blood Count 5.33 M/uL (4.00-5.60) Hemoglobin 17.4 g/dL (14.0-18.0) Hematocrit 50.2 % (42.0-52.0) Mean Corpuscular Volume 94.2 fL (80.0-96.0) Mean Corpuscular Hemoglobin 32.7 pg (26.0-33.0) Mean Corpuscular Hemoglobin Concent 34.7 g/dL (32.0-36.0) Red Cell Distribution Width 13.5 % (11.5-14.5) Platelet Count 177 K/uL (150-450) Mean Platelet Volume 7.7 fL (7.2-11.1) Neutrophils (%) (Auto) 62.1 % (39.4-72.5) Lymphocytes (%) (Auto) 27.0 % (17.6-49.6) Monocytes (%) (Auto) 9.9 % (4.1-12.4) Eosinophils (%) (Auto) 0.1 % (0.4-6.7) Basophils (%) (Auto) 0.9 % (0.3-1.4) Nucleated RBC Relative Count (auto) 0.0 /100WBC Neutrophils # (Auto) 3.8 K/uL (2.0-7.4) Lymphocytes # (Auto) 1.6 K/uL (1.3-3.6) Monocytes # (Auto) 0.6 K/uL (0.3-1.0) Eosinophils # (Auto) 0.0 K/uL (0.0-0.5) Basophils # (Auto) 0.1 K/uL (0.0-0.1) Nucleated RBC Absolute Count (auto) 0.00 K/uL Glomerular Filtration Rate Calc > 60.0 Calcium Level 7.8 mg/dl (8.4-10.2) Magnesium Level 2.1 mg/dl (1.7-2.2) Total Bilirubin 0.8 mg/dl (0.2-1.3) Aspartate Amino Transf (AST/SGOT) 387 U/L (0-35) Alanine Aminotransferase (ALT/SGPT) 139 U/L (0-56) Alkaline Phosphatase 132 U/L (0-126) Total Protein 7.3 g/dl (6.3-8.2) Albumin 4.1 g/dl (3.5-5.0) Thyroid Stimulating Hormone (TSH) 3.01 uIU/ml (0.46-4.68) Salicylates Level < 10 mg/L Salicylate Last Dose Date unk Acetaminophen Level < 10 ug/ml Serum Alcohol 370 mg/dl Urine Color Yellow Urine Clarity Clear Urine pH 5.0 pH (4.8-9.5) Urine Specific [place] 1.013 Urine Protein 100 mg/dL (NEGATIVE) Urine Glucose (UA) Negative mg/dL (NEGATIVE) Urine Ketones Negative mg/dL (NEGATIVE) Urine Blood Small (NEGATIVE) Urine Nitrite Negative (NEGATIVE) Urine Bilirubin Negative (NEGATIVE) Urine Urobilinogen Negative mg/dL (0.2-1.9) Urine Leukocyte Esterase Negative (NEGATIVE) Urine RBC 1 /HPF (0-2/HPF) Urine WBC 1 /HPF (0-5/HPF) Urine Squamous Epithelial Cells Few /LPF (</=FEW) Urine Bacteria Few /HPF (NONE-FEW) Urine Hyaline Casts Many /LPF (NONE-FEW) Urine Mucus Few /HPF (NONE-FEW) Urine Opiates Screen Negative Urine Barbiturates Screen Negative Ur Tricyclic Antidepressants Screen Negative Urine Phencyclidine Screen Negative Urine Amphetamines Screen Negative Urine Benzodiazepines Screen Negative Urine Cocaine Screen Negative Urine Cannabinoids Screen Negative Toxicology Test 06/07/18 04:16 06/07/18 10:23 Salicylates Level < 10 mg/L Salicylate Last Dose Date unk Acetaminophen Level < 10 ug/ml Serum Alcohol 370 mg/dl Urine Opiates Screen Negative Urine Barbiturates Screen Negative Ur Tricyclic Antidepressants Screen Negative Urine Phencyclidine Screen Negative Urine Amphetamines Screen Negative Urine Benzodiazepines Screen Negative Urine Cocaine Screen Negative Urine Cannabinoids Screen Negative Urinalysis Test 06/07/18 10:23 Urine Color Yellow Urine Clarity Clear Urine pH 5.0 pH (4.8-9.5) Urine Specific [place] 1.013 Urine Protein 100 mg/dL (NEGATIVE) Urine Glucose (UA) Negative mg/dL (NEGATIVE) Urine Ketones Negative mg/dL (NEGATIVE) Urine Blood Small (NEGATIVE) Urine Nitrite Negative (NEGATIVE) Urine Bilirubin Negative (NEGATIVE) Urine Urobilinogen Negative mg/dL (0.2-1.9) Urine Leukocyte Esterase Negative (NEGATIVE) Urine RBC 1 /HPF (0-2/HPF) Urine WBC 1 /HPF (0-5/HPF) Urine Squamous Epithelial Cells Few /LPF (</=FEW) Urine Bacteria Few /HPF (NONE-FEW) Urine Hyaline Casts Many /LPF (NONE-FEW) Urine Mucus Few /HPF (NONE-FEW) ED Course/Re-evaluation ED Course The patient was started with an IV and labs. A banana bag was given. He was given 2mg of IV Ativan. His shakiness has improved. He is saying he does not want to be admitted upstairs to the inpatient behavioral health unit. He wants to stay on the ER to detox. Explained that we cannot keep him in the ER and he will either need to be admitted or we will need to get him back home. He expressed desire to return home. Decision to Disposition Date: Jun 07, 2018 Decision to Disposition Time: 06:55 Depart Departure Latest Vital Signs Vital Signs Date Time Temp Pulse Resp B/P (MAP) Pulse Ox O2 Delivery O2 Flow Rate FiO2 06/07/18 10:47 ??? 06/07/18 09:47 87 06/07/18 09:00 ???/??? (1665) 06/07/18 06:42 Room Air 06/07/18 05:39 98.3 16 Impression: Primary Impression: Alcohol dependence syndrome Condition: Improved Disposition: HOME OR SELF-CARE Patient Instructions: Alcohol Dependence (ED), Alcohol Intoxication (ED) Additional Instructions: Would recommend not drinking to excess. Problem Qualifiers Primary Impression: Alcohol dependence syndrome Substance use status: unspecified alcohol-induced disorder Qualified Codes: F10.29 - Alcohol dependence with unspecified alcohol-induced disorder ROSEMARY WRIGHT MD Jun 07, 2018 05:47
[2018-06-07] MEDS ORDERED: LORazepam 2 MG/ML VIAL IVP ONE (05:50)
[2018-06-07] MEDS ORDERED: THIAMINE HCL(*) 200 MG/2 ML IN 100 MG, FOLIC ACID(*) 50 MG/10 ML INJ 1 MG, MULTIVITAMIN... IV ONE (05:50)
[2018-06-07] MEDS ORDERED: CLEANSE (05:59)
[2018-06-07] MEDS ORDERED: MILK1CAP4 PO (05:59)
[2018-06-07 06:27] LABS: PLATELET COUNT, AUTOMATED 177 K/uL (150-450)
== END 2018-06-07 10:59 | disposition home or self-care (01) ==
LOC: ER 05:49
DX: F10.29 Alcohol dependence with unspecified alcohol-induced disorder (principal)
CPT/HCPCS: 36415; 80305; 80320; 80329; 81001; 83735; 84443; 85025; 96365; 96366; 96375; 99284; J2060; J3411; J3475; J7030; 82040; 82247; 82310; 82374; 82435; 82565; 82947; 84075; 84132; 84155; 84295; 84450; 84460; 84520

== ENCOUNTER 2018-06-07 12:00 | Inpatient (IN) | payer SELFPAY ==
[2016-09-27 10:08] VITALS: Ht 185.4 cm; Wt 104.3 kg
[~2018-06-07] VITALS: Ht 185.4 cm; Wt 104.3 kg
[~2018-06-07 12:00] MED LIST changes: +CLEANSE; +MILK1CAP4 PO
[2018-06-07 12:30] VITALS: BP 149/110
[2018-06-07] MEDS: DIAZEPAM 10 MG TAB PO PRN ×7 (12:33→23:05)
[2018-06-07 15:50] VITALS: BP 107/68
[2018-06-07] MEDS: MAG HYD/AL HYD/SIMETH 30ML UDC PO PRN (19:38)
[2018-06-07 23:10] VITALS: BP 140/91
[2018-06-08] MEDS: DIAZEPAM 10 MG TAB PO PRN ×5 (00:01→21:56)
[2018-06-08 00:57] VITALS: BP 137/98
[2018-06-08 07:00] VITALS: BP 134/93
[2018-06-08] MEDS: THIAMINE HCL 100 MG TAB PO SCH (08:15)
[2018-06-08] MEDS: MULTIVITAMINS TAB PO SCH (08:15)
[2018-06-08] MEDS: FOLIC ACID 1 MG TAB PO SCH (08:15)
[2018-06-08 08:40] VITALS: BP 150/96
[2018-06-08] MEDS: IBUPROFEN 600 MG TAB PO PRN (10:58)
[2018-06-08 13:15] VITALS: BP 153/97
--- NOTE | 2018-06-08 15:27 | HISTORY AND PHYSICAL ---
DATE OF ADMISSION: June 07, 2018 The patient was interviewed on the morning of June 08 at 10:00 a.m. for this dictation. CHIEF COMPLAINT "I had been on a two-week drinking binge, I lost my job." HISTORY OF PRESENT ILLNESS This is about the seventh [facility] voluntary admission for this 47-year-old white male who has a history of alcohol use disorder. The patient was last here in February for detox and says he did not stay sober for very long. He was drinking on and off, but then over the past two weeks, he increased his alcohol consumption significantly, drinking one large bottle of Black Velvet every day for the past eight days. 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 The patient says he is feeling frustrated and depressed about not being able to stop drinking. He denies any suicidal ideation, but he does feel hopeless and feels like life is not worth living. In the past, his detoxes have been uncomplicated. He has never had a history of seizures. PAST PSYCHIATRIC HISTORY He has been to rehab three separate times, once at the [facility] in [place], once at the [facility] in [place], and once at [facility] approximately two years ago. He was formerly in therapy at [facility], but has not been there for over a year now. As above, he has had about seven prior [facility] detox admissions. FAMILY PSYCHIATRIC HISTORY Negative for psychiatric. PAST MEDICAL HISTORY 1. Elevated cholesterol. 2. He is seen once a year at the [facility] for followup. ALLERGIES He denies allergies. CURRENT MEDICATIONS 1. Naltrexone 50 mg daily. 2. Sertraline 150 mg daily. SOCIAL HISTORY The patient was born in [place]. His father worked in a government job. He graduated high school later in [place]. He has two sisters who live in [place]. He joined the [employer], served for four years, and had an honorable discharge. 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 He has never , and he lives alone. He has a good relationship with his parents who live in [place]. LEGAL HISTORY In the distant past, he had two DUIs, once in 1997 and once in 1999. VICTIM ISSUES None. SUBSTANCE ABUSE HISTORY He denies use of any other substances other than many years of chronic alcohol consumption. PHYSICAL EXAMINATION Please see the ER physician's chart. VITAL SIGNS: Temperature 99.4, pulse 88, respiratory rate 28, blood pressure 107/68, pulse ox is 91% on room air. LABORATORY DATA Potassium was low at 3.4. Calcium was low at 7.9. Total bili normal at 0.8. AST elevated at 387. ALT elevated at 139. Alk phos elevated at 132. TSH is normal at 3.01. CBC is within normal limits. Urinalysis was positive for small blood and many hyaline casts. Serum alcohol was 370. The rest of his drug screen was negative. MENTAL STATUS EXAMINATION The patient was casually groomed, dressed in hospital scrubs, and was cooperative. Speech was normal in rate, tone, and volume. Mood and affect were slightly depressed. Thought process was logical and goal directed. Thought content was negative for suicidal ideation, homicidal ideation, auditory hallucinations, visual hallucinations, and delusions. He was alert and fully oriented to person, place, time, and situation. Memory was intact for immediate, recent, and remote recall. Intelligence is average based on interview. Insight and judgment are fair. ASSESSMENT 1. Alcohol use disorder, severe. 2. Alcohol withdrawal. 3. Alcohol-induced depressive disorder. PLAN The patient will be admitted to [facility] and will be maintained on alcohol detox using a [facility] protocol with Valium. He will attend individual and group therapy focusing particularly on sobriety. We will continue his Zoloft and his naltrexone after his detox is complete. Estimated length of stay is three to five days. MTDD
[2018-06-08 18:04] VITALS: BP 148/100
[2018-06-08 21:31] VITALS: BP 156/104
[2018-06-09 05:38] VITALS: BP 146/98
[2018-06-09] MEDS: MAG HYD/AL HYD/SIMETH 30ML UDC PO PRN (05:46)
[2018-06-09] MEDS: IBUPROFEN 600 MG TAB PO PRN ×2 (05:46→16:31)
[2018-06-09] MEDS: SERTRALINE HCL 50 MG TAB PO SCH (08:34)
[2018-06-09] MEDS: FOLIC ACID 1 MG TAB PO SCH (08:34)
[2018-06-09] MEDS: THIAMINE HCL 100 MG TAB PO SCH (08:34)
[2018-06-09] MEDS: MULTIVITAMINS TAB PO SCH (08:34)
[2018-06-09] MEDS: NALTREXONE HCL 50 MG TAB PO SCH (09:26)
[2018-06-09 09:50] VITALS: BP 158/100
[2018-06-09 15:45] VITALS: BP 156/102
--- NOTE | 2018-06-09 17:53 | BHS Progress Note ---
[facility] - Subjective Progress Notes Subjective Pt seen in treatment team with his mother present. Pt doing better today. His last valium was last night at 9 pm. So far not scoring on CIWA yet today. Talkied about his plans to maintain sobriety. He met with two members of AA last night and found that very helpful. Talked about how "the relapse happens b efore the first drink>" Looking at his relapse triggers. Mother is supportive. He plans to stay with parents for some time after discharge and plans to attend AA meetings daily. If he remains free of withdrawal symptoms we may be able to discharge tomorrow morning. Suicidal Ideation: None Homicidal Ideation: None [facility] - Objective Physical Exam Vital Signs Vital Signs 06/09/18 15:45 Temp 98.6 Pulse 71 Resp 16 B/P (MAP) 156/102 (120) Pulse Ox 96 O2 Delivery Room Air Muscle Strength and Tone: WNL Gait and Station: Steady [facility] Medications Reviewed: Side Effects, Benefits of Medication, Risks Allergies Reviewed: Yes Mental Status Exam General Appearance: Casual, Well Groomed, Good Eye Contact, Cooperative, Polite, Good Interaction Speech: Clear, Spontaneous, Normal Rate, Normal Rhythm, Normal Volume, Normal Tone Mood: Dysthmic/Depressed Affect: Calm, Neutral Thought Process: Organized, Logical, Goal Directed Thought Content: No Suicidal Ideation, No Homicidal Ideation, No Delusions, No Auditory Halllucinations, No Visual Hallucinations, No Thought Broadcasting, No Ideas of Reference, No Obsessions, No Compulsions, No Other Sensorium: Clear Cognition: Alert & Oriented-Person, Alert & Oriented-Place, Alert & Oriented- Time, Pytuj-Dgqhziyp-Xabwoaogj Memory: Immediate, Recent, Remote Intelligence: Average Insight Judgment: Fair Result Diagram: 06/08/18 0652 [facility] Assessment and Plan [id number] Encounter Date: Jun 09, 2018 [id number] Encounter Time: 11:00 [facility] Plan: Admit to Unit, Necessary Precautions, Individual/Group Therapy, Admin/Titrate Meds, Educate Patient Tobacco Medications: Not Appropriate Condition Multpiple Antipsychotics Used: Yes Problems: (1) Alcohol withdrawal Status: Acute (2) Alcohol use disorder, severe, in controlled environment Status: Chronic (3) Persistent depressive disorder Status: Chronic MANUELA MARIE MD Jun 09, 2018 17:53
[2018-06-09 18:45] VITALS: BP 162/98
[2018-06-10 06:49] VITALS: BP 134/84
[2018-06-10] MEDS: THIAMINE HCL 100 MG TAB PO SCH (07:33)
[2018-06-10] MEDS: NALTREXONE HCL 50 MG TAB PO SCH (07:33)
[2018-06-10] MEDS: MULTIVITAMINS TAB PO SCH (07:33)
[2018-06-10] MEDS: FOLIC ACID 1 MG TAB PO SCH (07:33)
[2018-06-10] MEDS: SERTRALINE HCL 50 MG TAB PO SCH (07:34)
[2018-06-10] MEDS: IBUPROFEN 600 MG TAB PO PRN (07:35)
--- NOTE | 2018-06-10 08:58 | BHS Progress Note ---
[facility] - Subjective Progress Notes Subjective "I plan to go to and [place]." Denies urge to drink, alcohol withdrawal complete Denies tremor, denies nausea, last Valium pm Discharging to mother's home, sober living, plans on renting out home Outpatient care through [facility] for medication management, counseling through [facility] Denies depression, anxiety or anger, denies thoughts of harming self or others Suicidal Ideation: None Homicidal Ideation: None Suicidal Ideation: None Homicidal Ideation: None [facility] - Objective Physical Exam Vital Signs Vital Signs Date Time Temp Pulse Resp B/P (MAP) Pulse Ox O2 Delivery O2 Flow Rate FiO2 06/10/18 06:49 98.7 63 134/84 (101) 94 Room Air 06/09/18 18:45 18 Muscle Strength and Tone: WNL Gait and Station: Steady [facility] Medications Reviewed: Side Effects, Benefits of Medication, Risks Allergies Reviewed: Yes Mental Status Exam General Appearance: Casual, Well Groomed, Good Eye Contact, Cooperative, Polit e, Good Interaction Speech: Clear, Spontaneous, Normal Rate, Normal Rhythm, Normal Volume, Normal Tone Mood: No Dysthmic/Depressed; Euthymic Affect: Calm, Neutral Thought Process: Organized, Logical, Goal Directed Thought Content: No Suicidal Ideation, No Homicidal Ideation, No Delusions, No Auditory Halllucinations, No Visual Hallucinations, No Thought Broadcasting, No Ideas of Reference, No Obsessions, No Compulsions, No Other Sensorium: Clear Cognition: Alert & Oriented-Person, Alert & Oriented-Place, Alert & Oriented- Time, Nclig-Rxalxspt-Elvinjqfp Memory: Immediate, Recent, Remote Intelligence: Average Insight Judgment: Fair Result Diagram: 06/08/18 0652 [facility] Laboratory Tests 06/08/18 06:52 Laboratory Tests 06/08/18 06:52: Sodium Level 137, Potassium Level 3.4, Chloride Level 103, Carbon Dioxide Level 25, Blood Urea Nitrogen 12, Creatinine 0.70, Glomerular Filtration Rate Calc > 60.0, Random Glucose 94, Calcium Level 7.9, Magnesium Level 2.1, Total Bilirubin 1.9, Aspartate Amino Transf (AST/SGOT) 153, Alanine Aminotransferase (ALT/SGPT) 108, Alkaline Phosphatase 97, Total Protein 5.9, Albumin 3.3 [facility] Assessment and Plan [id number] Encounter Date: Jun 10, 2018 [id number] Encounter Time: 08:55 [facility] Plan: Admit to Unit, Necessary Precautions, Individual/Group Therapy, Admin/Titrate Meds, Educate Patient Tobacco Medications: Not Appropriate Condition Multpiple Antipsychotics Used: Yes Problems: (1) Alcohol use disorder, severe, in controlled environment Status: Chronic (2) Alcohol withdrawal Status: Resolved (3) Persistent depressive disorder Status: Chronic Condition Discharge to home Follow up care through [facility], [facility], [facility] Abstain from etoh use Return to ER for worsening s/s, SI/HI STANLEY VERGARA NP Jun 10, 2018 08:58
[2018-06-10] MEDS ORDERED: THIA100T62 PO (09:10)
[2018-06-10] MEDS ORDERED: FOLI-68 PO (09:10)
[2018-06-10 09:15] VITALS: BP 136/70
--- NOTE | 2018-06-10 14:31 | ROMSA DISCHARGE ---
DATE OF ADMISSION: June 07, 2018 DATE OF DISCHARGE: June 10, 2018 ATTENDING PROVIDER VANI Pascual FINAL DIAGNOSES PER DIAGNOSTIC AND STATISTICAL MANUAL OF MENTAL DISORDERS, FIFTH EDITION 1. Alcohol use disorder, severe. 2. Alcohol withdrawal, considered complete. 3. Persistent depressive disorder. REASON FOR ADMISSION/BRIEF HISTORY Patient with history of alcohol use disorder with multiple previous inpatient psychiatric admissions, last being in February 2018 for alcohol use disorder, alcohol withdrawal. Patient presented to the Emergency Department requesting voluntary admission for alcohol detox, reporting that he had been drinking heavily, two large bottles of hard liquor daily. Last drink was two hours prior to presenting to the Emergency Department feeling tremulous and agreeing to admission. Patient's alcohol use disorder significant and long-standing in nature. Patient historically has had a degree of substance-induced mood disorder, previously engaging in self-induced lacerations to forearms and self- harm behaviors. Patient was displaying no parasuicidal behavior, denying suicidal ideation while on the unit, and interacting well. Patient was receptive of treatment recommendations and continued to improve. His alcohol withdrawal was treated to incompletion and considered moderate to severe in nature. Patient has been continued on naltrexone as well as sertraline. Patient is agreeable to ongoing outpatient substance abuse treatment through [facility] as well as AA meetings. Patient is to follow up with his medication management through [facility] where he has an established provider. Patient is wanting to return to work, look for new opportunities, and is hopeful for the future. Patient in good spirits at time of discharge interview. No new medical concerns. Alcohol withdrawal considered complete. PHYSICAL EXAMINATION Please see emergency room notes for physical exam. VITAL SIGNS: Vital signs at the time of admission including temperature of 98.6, pulse of 69, respiratory rate 14, blood pressure 146/98, pulse oximetry 95% on room air. Vital signs at the time of discharge include temperature of 98, pulse of 97, respiratory rate 18, blood pressure 136/70, pulse oximetry 93% on room air. LABORATORY DATA Please see emergency room records. CBC within normal limits. Chemistry panel with elevated AST of 387, elevated ALT 139, alkaline phosphatase 132, random glucose 115, calcium low at 7.8. Thyroid stimulating hormone 3.01. Urine screen within normal limits with many hyaline casts. Toxicology with blood alcohol initially at 370. Urine screen negative for opiates, barbiturates, tricyclics, phencyclidine, amphetamines, benzodiazepines, cocaine, and cannabinoids. MENTAL STATUS EXAMINATION GENERAL APPEARANCE, BEHAVIOR, AND ATTITUDE: Patient is calm, cooperative, interacting well with team members at time of discharge interview. No bizarre mannerisms or tics. No psychomotor agitation or retardation. No periods of tearfulness. Patient denies suicidal or homicidal ideation. SPEECH: Regular rate, rhythm, volume, tone. MOOD: Euthymic. AFFECT: Minimally constricted, mood congruent. THOUGHT PROCESSES: Logical, goal directed. No loose associations or flight of ideas. THOUGHT CONTENT: Free of auditory or visual hallucinations, ideas of reference, thought broadcastings, delusions, obsessions, compulsions. Patient again denying adamantly suicidal or homicidal ideation. SENSORIUM: Clear. COGNITION: Alert and oriented to person, place, time, and situation. MEMORY: Immediate, recent, remote was estimated intact. INTELLIGENCE: Average based on interview. INSIGHT AND JUDGMENT: Considered intact as patient denies urge to drink, agreeable with ongoing outpatient services for substance abuse. CONSULTATIONS None. TREATMENT Patient participated in individual and group therapy. He was treated for alcohol withdrawal, which is now considered complete. DISCHARGE MEDICATIONS 1. Folic acid 1 mg p.o. daily. 2. Melatonin 10 mg p.o. at bedtime. 3. Milk thistle seed 140 mg one p.o. daily. 4. One multivitamin q.a.m. 5. Naltrexone 50 mg one p.o. daily. 6. Sertraline 150 mg p.o. daily. 7. Thiamine 100 mg p.o. daily. Patient is to take medications only as prescribed. HOSPITAL COURSE Patient, again, remained calm and cooperative, receptive of treatment recommendations. Patient remained calm and cooperative throughout his stay and took an active role in his care. CONDITION OF PATIENT ON DISCHARGE Stable. He is considered a minimal risk to himself or others and appropriate for ongoing outpatient management. DISPOSITION Patient is discharged to home. His parents would drive him to their residence where he plans on staying. He is continuing his outpatient medication management through the [facility] where he has an established provider. The patient agrees to abstain from alcohol and all illicit substances. Patient's medications upon discharge outlined above. Patient is to take medications only as prescribed. Patient is encouraged to use the crisis line should symptoms worsen. He is encouraged to return to the Emergency Room for worsening symptoms, suicidal or homicidal ideation. The risks, benefits, and alternatives of the above discharge plan were discussed. Informed consent was given to proceed with the above discharge plan by this competent patient. His family member was present at the time of discharge. KODAK
== END 2018-06-10 09:30 | disposition home or self-care (01) | DRG 897 ==
LOC: UNDOADMIN 12:00 → BHS 12:00
PROVIDERS: ADMIT Psychiatry & Neurology Psychiatry; ATTEND Psychiatry & Neurology Psychiatry
DX: F10.230 Alcohol dependence with withdrawal, uncomplicated (principal); F34.1 Dysthymic disorder; Y90.8 Blood alcohol level of 240 mg/100 ml or more; E78.00 Pure hypercholesterolemia, unspecified; Z56.0 Unemployment, unspecified
CPT/HCPCS: 36415; 82040; 82247; 82310; 82374; 82435; 82565; 82947; 83735; 84075; 84132; 84155; 84295; 84450; 84460; 84520

== ENCOUNTER 2019-01-01 23:07 | Emergency (ER) | payer OTHER ==
[2016-09-27 10:08] VITALS: Wt 104.3 kg
[~2019-01-01 23:07] MED LIST changes: +THIA100T62 PO
--- NOTE | 2019-01-01 23:28 | ER Report ---
History and Physical Time Seen By MD: 23:25 Hx. of Stated Complaint: PT APPEARS INTOXICATED. MOTHER FOUND HIM AT HOME DRINKING. HE HAD BEEN SOBER FOR 8 MONTHS BUT WENT ON A 24 HOUR BINGE TODAY HPI/ROS CHIEF COMPLAINT: alcohol intoxication HISTORY OF PRESENT ILLNESS: This is a 48 year old male with chronic alcoholism. He has been drinking heavily again. His mother was visiting him and found him to be intoxicated. She was worried about possible seizure activity so brought him in for evaluation. He says he have been drinking for a few weeks now, but his mother thinks for a few days. Drinking alot of whiskey and beer, not quantified other than "a lot". He does not want to stay in the hospital. Too intoxicated to return home on his own now. REVIEW OF SYSTEMS: Constitutional: No fever or chills. Cardiovascular: No chest pain. Respiratory: No shortness of breath. Gastrointestinal: No abdominal pain. Neurological: No headache or dizziness. Allergies: Coded Allergies: No Known Drug Allergies (Verified , 01/01/19) Home Meds Reported Medications Thiamine Hcl (THIAMINE HCL) 100 Mg Tablet, 100 MG PO DAILY 06/10/18 Folic Acid (FOLIC ACID) 1 Mg Tablet, 1 MG PO QDAY, TAB 06/10/18 [liver cleanse] No Conflict Check 06/07/18 Milk Thistle Seed Extract (MILK THISTLE) 140 Mg Capsule, 140 MG PO DAILY, CAPSULE 06/07/18 Multivits,Ca,Minerals/Iron/FA (Thera M Plus Tablet) 1 Each Tablet, QAM 02/26/18 Melatonin (MELATONIN) 10 Mg Tablet, 10 MG PO QHS 02/23/18 Naltrexone Hcl (NALTREXONE HCL) 50 Mg Tablet, 50 MG PO QDAY 02/23/18 Sertraline Hcl (SERTRALINE HCL) 100 Mg Tablet, 150 MG PO QDAY, TAB 02/23/18 Reviewed Nurses Notes: Yes Hx Smoking: No Smoking Status: Never Smoker Exposure to Second Hand Smoke?: No Hx Substance Use Disorder: Yes Hx Alcohol Use: Yes Constitutional Vital Sign - Last 24 Hours 01/01/19 01/01/19 01/01/19 01/01/19 23:19 23:21 23:22 23:28 Temp 98.6 Pulse 101 97 Resp 16 B/P (MAP) 137/95 (109) 137/95 Pulse Ox 85 87 O2 Delivery Room Air O2 Flow Rate 2.0 01/01/19 01/01/19 01/01/19 01/02/19 23:30 23:37 23:52 00:00 Pulse 97 ??? B/P (MAP) 129/91 (104) 127/84 (98) Pulse Ox 94 01/02/19 01/02/19 01/02/19 01/02/19 00:05 00:20 00:30 00:35 Pulse 86 86 87 B/P (MAP) 134/96 (109) Pulse Ox 95 95 94 01/02/19 01/02/19 01/02/19 01/02/19 00:50 01:00 01:20 01:30 Pulse 85 ??? B/P (MAP) 116/78 (91) 132/93 (106) Pulse Ox 97 01/02/19 01/02/19 01/02/19 01/02/19 01:35 01:40 01:55 02:00 Pulse ? B/P (MAP) 134/92 (106) 01/02/19 01/02/19 01/02/19 01/02/19 03:30 03:35 03:44 03:45 Pulse ??? 95 B/P (MAP) ???/??? (7565) 139/88 (105) Intake and Output 01/01/19 01/01/19 01/02/19 15:00 23:00 07:00 Intake Total 2000 ml Balance 2000 ml Physical Exam General Appearance: intoxicated, but able to answer questions, although slow to do so. No acute distress. No need for airway protection. Eyes: Pupils are equal, round. No pallor, injection or icterus. Extraocular movements are intact. Reactive to light. ENT: Mucous membranes are moist. Normal oral mucosa. Normal tympanic membranes and canals. Normal posterior oropharynx. Neck: Supple and non tender. No lymphadenopathy. Respiratory: Lungs are clear to auscultation. Cardiovascular: Regular rate and rhythm. No murmurs, gallops or rubs. Normal capillary refill. Gastrointestinal: Abdomen is soft and non tender. Nondistended. Normal active bowel sounds. Neurological: Alert and oriented x3, but intoxicated. Skin: Warm and dry. No rashes. DIFFERENTIAL DIAGNOSIS: After history and physical exam, differential diagnosis was considered for alcohol intoxication Medical Decision Making Data Points Result Diagram: 01/01/19 3743 01/01/19 2356 Laboratory Hematology Test 01/01/19 23:53 Red Blood Count 5.56 M/uL (4.00-5.60) Mean Corpuscular Volume 93.7 fL (80.0-96.0) Mean Corpuscular Hemoglobin 32.2 pg (26.0-33.0) Mean Corpuscular Hemoglobin Concent 34.4 g/dL (32.0-36.0) Red Cell Distribution Width 13.2 % (11.5-14.5) Mean Platelet Volume 8.1 fL (7.2-11.1) Neutrophils (%) (Auto) 70.3 % (39.4-72.5) Lymphocytes (%) (Auto) 23.3 % (17.6-49.6) Monocytes (%) (Auto) 5.4 % (4.1-12.4) Eosinophils (%) (Auto) 0.3 % (0.4-6.7) Basophils (%) (Auto) 0.7 % (0.3-1.4) Nucleated RBC Relative Count (auto) 0.0 /100WBC Neutrophils # (Auto) 6.2 K/uL (2.0-7.4) Lymphocytes # (Auto) 2.0 K/uL (1.3-3.6) Monocytes # (Auto) 0.5 K/uL (0.3-1.0) Eosinophils # (Auto) 0.0 K/uL (0.0-0.5) Basophils # (Auto) 0.1 K/uL (0.0-0.1) Nucleated RBC Absolute Count (auto) 0.00 K/uL Sodium Level 144 mmol/L (137-145) Potassium Level 3.7 mmol/L (3.5-5.0) Chloride Level 106 mmol/L (98-107) Carbon Dioxide Level 23 mmol/L (22-30) Blood Urea Nitrogen 13 mg/dl (9-21) Creatinine 0.80 mg/dl (0.66-1.25) Glomerular Filtration Rate Calc > 60.0 Random Glucose 104 mg/dl (75-110) Calcium Level 8.6 mg/dl (8.4-10.2) Magnesium Level 1.6 mg/dl (1.7-2.2) Total Bilirubin 0.4 mg/dl (0.2-1.3) Aspartate Amino Transf (AST/SGOT) 44 U/L (0-35) Alanine Aminotransferase (ALT/SGPT) 47 U/L (0-56) Alkaline Phosphatase 96 U/L (0-126) Total Protein 7.8 g/dl (6.3-8.2) Albumin 4.6 g/dl (3.5-5.0) Salicylates Level < 10 mg/L Salicylate Last Dose Date unk Acetaminophen Level < 10 ug/ml Serum Alcohol 348 mg/dl Chemistry Test 01/01/19 23:53 White Blood Count 8.8 k/uL (4.5-11.0) Red Blood Count 5.56 M/uL (4.00-5.60) Hemoglobin 17.9 g/dL (14.0-18.0) Hematocrit 52.1 % (42.0-52.0) Mean Corpuscular Volume 93.7 fL (80.0-96.0) Mean Corpuscular Hemoglobin 32.2 pg (26.0-33.0) Mean Corpuscular Hemoglobin Concent 34.4 g/dL (32.0-36.0) Red Cell Distribution Width 13.2 % (11.5-14.5) Platelet Count 258 K/uL (150-450) Mean Platelet Volume 8.1 fL (7.2-11.1) Neutrophils (%) (Auto) 70.3 % (39.4-72.5) Lymphocytes (%) (Auto) 23.3 % (17.6-49.6) Monocytes (%) (Auto) 5.4 % (4.1-12.4) Eosinophils (%) (Auto) 0.3 % (0.4-6.7) Basophils (%) (Auto) 0.7 % (0.3-1.4) Nucleated RBC Relative Count (auto) 0.0 /100WBC Neutrophils # (Auto) 6.2 K/uL (2.0-7.4) Lymphocytes # (Auto) 2.0 K/uL (1.3-3.6) Monocytes # (Auto) 0.5 K/uL (0.3-1.0) Eosinophils # (Auto) 0.0 K/uL (0.0-0.5) Basophils # (Auto) 0.1 K/uL (0.0-0.1) Nucleated RBC Absolute Count (auto) 0.00 K/uL Glomerular Filtration Rate Calc > 60.0 Calcium Level 8.6 mg/dl (8.4-10.2) Magnesium Level 1.6 mg/dl (1.7-2.2) Total Bilirubin 0.4 mg/dl (0.2-1.3) Aspartate Amino Transf (AST/SGOT) 44 U/L (0-35) Alanine Aminotransferase (ALT/SGPT) 47 U/L (0-56) Alkaline Phosphatase 96 U/L (0-126) Total Protein 7.8 g/dl (6.3-8.2) Albumin 4.6 g/dl (3.5-5.0) Salicylates Level < 10 mg/L Salicylate Last Dose Date unk Acetaminophen Level < 10 ug/ml Serum Alcohol 348 mg/dl Toxicology Test 01/01/19 23:53 Salicylates Level < 10 mg/L Salicylate Last Dose Date unk Acetaminophen Level < 10 ug/ml Serum Alcohol 348 mg/dl ED Course/Re-evaluation Clinical Indication for ER IV: Hydration, IV Access ED Course Banana bag given. A second liter of normal saline given. He awoke later and was feeling better. Sober and able to make decisions. Still does not want to stay. Decided he would walk home as no taxis were available. Decision to Disposition Date: January 02, 2019 Decision to Disposition Time: 03:38 Depart Departure Latest Vital Signs Vital Signs Date Time Temp Pulse Resp B/P (MAP) Pulse Ox O2 Delivery O2 Flow Rate FiO2 01/02/19 03:45 95 01/02/19 03:44 139/88 (105) 01/02/19 00:50 97 01/01/19 23:28 2.0 01/01/19 23:21 98.6 16 Room Air Impression: Primary Impression: Alcohol dependence syndrome Condition: Improved Disposition: HOME OR SELF-CARE Patient Instructions: Alcohol Dependence (ED) Additional Instructions: If you change your mind, you can return and discuss admission to behavioral health for further treatment of alcohol dependence. Problem Qualifiers Primary Impression: Alcohol dependence syndrome Substance use status: uncomplicated Qualified Codes: F10.20 - Alcohol dependence, uncomplicated ROSEMARY WRIGHT MD January 01, 2019 23:28
[2019-01-02 00:24] LABS: PLATELET COUNT, AUTOMATED 258 K/uL (150-450)
[2019-01-02] MEDS ORDERED: THIAMINE HCL(*) 200 MG/2 ML IN 100 MG, FOLIC ACID(*) 50 MG/10 ML INJ 1 MG, MULTIVITAMIN... IV ONE (01:10)
[2019-01-02] MEDS ORDERED: NS(*) 0.9% 1000 ML BAG 1,000 ML IV ONE (01:50)
[2019-01-02 03:44] VITALS: BP 139/88
== END 2019-01-02 03:49 | disposition home or self-care (01) ==
LOC: ER 23:30
DX: F10.20 Alcohol dependence, uncomplicated (principal)
CPT/HCPCS: 80320; 80329; 83735; 84443; 85025; 99283; J3411; J7030; 82040; 82247; 82310; 82374; 82435; 82565; 82947; 84075; 84132; 84155; 84295; 84450; 84460; 84520; 96365; 96366

== ENCOUNTER 2019-01-02 13:04 | Emergency (ER) | payer OTHER ==
[2016-09-27 10:08] VITALS: Wt 104.3 kg
--- NOTE | 2019-01-02 13:07 | ER Report ---
History and Physical Time Seen By MD: 13:07 HPI/ROS CHIEF COMPLAINT: Alcohol intoxication, detox HISTORY OF PRESENT ILLNESS: Patient is a 48-year-old male here with alcohol intoxication. Patient has been seen here multiple times for similar complaints however refuses to go up to behavioral health services for detoxification. Winnie francisco j was here last night for the same issue. Patient came in requesting benzodiazepines and discharge. By the time I arrived at the room he had already put his clothes back on and was ready to leave. Patient was offered admission to behavioral services, information regarding other outpatient rehabilitation services however the patient refused and immediately left the department. Patient left before I was able to thoroughly examine him. REVIEW OF SYSTEMS: Unable to obtain Allergies: Coded Allergies: No Known Drug Allergies (Verified , 01/01/19) Home Meds Reported Medications Thiamine Hcl (THIAMINE HCL) 100 Mg Tablet, 100 MG PO DAILY 06/10/18 Folic Acid (FOLIC ACID) 1 Mg Tablet, 1 MG PO QDAY, TAB 06/10/18 [liver cleanse] No Conflict Check 06/07/18 Milk Thistle Seed Extract (MILK THISTLE) 140 Mg Capsule, 140 MG PO DAILY, CAPSULE 06/07/18 Multivits,Ca,Minerals/Iron/FA (Thera M Plus Tablet) 1 Each Tablet, QAM 02/26/18 Melatonin (MELATONIN) 10 Mg Tablet, 10 MG PO QHS 02/23/18 Naltrexone Hcl (NALTREXONE HCL) 50 Mg Tablet, 50 MG PO QDAY 02/23/18 Sertraline Hcl (SERTRALINE HCL) 100 Mg Tablet, 150 MG PO QDAY, TAB 02/23/18 Hx Smoking: No Smoking Status: Never Smoker Exposure to Second Hand Smoke?: No Hx Substance Use Disorder: Yes Hx Alcohol Use: Yes Physical Exam Intoxicated appearing, slurring speech, stumbling with clothing, disheveled. Unable to obtain further physical examination as patient insisted on leaving the department prior to evaluation. Medical Decision Making ED Course/Re-evaluation ED Course Patient is a 48-year-old male here with suspected alcohol intoxication, slurring speech, stumbling, disheveled. Patient was seen here last night and multiple times in the past for similar complaints. Patient was offered admission to behavioral health services however the patient refused these services were outpatient rehabilitation services which I offered. The patient reports "I'm only here for a banana boat finis and pills" at which time the patient had fully dressed and subsequently left the department prior to me being able to play be physical examination or order labs or diagnostics on him. Emergency room staff noted that the patient had subsequently gotten in a car and drove away. Police Department was contacted due to concern that the patient was clearly intoxicated and might be driving. Decision to Disposition Date: January 02, 2019 Decision to Disposition Time: 13:28 Depart Departure Impression: Primary Impression: Intoxication Condition: Condition Unchanged Disposition: AGAINST MED ADV / DISCONT CARE CAROLYNE ALMONTE DO January 02, 2019 13:07
== END 2019-01-02 13:30 | disposition left against medical advice (07) ==
LOC: ER 13:15
DX: F10.220 Alcohol dependence with intoxication, uncomplicated (principal)
CPT/HCPCS: 99281

== ENCOUNTER 2019-01-08 18:23 | Emergency (ER) | payer OTHER ==
[2016-09-27 10:08] VITALS: Wt 108.9 kg
--- NOTE | 2019-01-08 18:25 | ER Report ---
History and Physical Time Seen By MD: 18:25 HPI/ROS CHIEF COMPLAINT: Requesting detox HISTORY OF PRESENT ILLNESS: Patient is a 48-year-old male with history of heavy alcohol use and multiple ER visits and multiple admissions to [facility] for detox. He has been to rehabilitation 3 separate times once at the [facility] [place], once in the [facility] in [place] and once again is recovering approximately 2 years ago. He also tolerated [facility] but has not been there for a few years now. She was most recently seen on January 01 and for alcohol intoxication. On the he was offered admission and detox however he refused requesting only benzodiazepines to help with his symptoms. Patient left A prior to the physician actually reevaluating him on the . patient states that he is here because he is trying to self detox from alcohol at home and had some episodes of vomiting blood and some blood from his nose. He became concerned so he came to the emergency department to be "checked out". He is currently not interested in detox here in the hospital he is depressed but not feeling suicidal. He denies any chest pain or shortness of breath, does report some epigastric abdominal pain. He denies melena. REVIEW OF SYSTEMS: Constitutional: No fever, no chills. Eyes: No discharge. ENT: No sore throat. Cardiovascular: No chest pain, no palpitations. Respiratory: No cough, no shortness of breath. Gastrointestinal: Gastric abdominal pain, vomiting, hematemesis Genitourinary: No hematuria. Musculoskeletal: No back pain. Skin: No rashes. Neurological: No headache. Allergies: Coded Allergies: No Known Drug Allergies (Verified , 01/08/19) Home Meds Reported Medications Thiamine Hcl (THIAMINE HCL) 100 Mg Tablet, 100 MG PO DAILY 06/10/18 Folic Acid (FOLIC ACID) 1 Mg Tablet, 1 MG PO QDAY, TAB 06/10/18 [liver cleanse] No Conflict Check 06/07/18 Milk Thistle Seed Extract (MILK THISTLE) 140 Mg Capsule, 140 MG PO DAILY, CAPSULE 06/07/18 Multivits,Ca,Minerals/Iron/FA (Thera M Plus Tablet) 1 Each Tablet, QAM 02/26/18 Melatonin (MELATONIN) 10 Mg Tablet, 10 MG PO QHS 02/23/18 Naltrexone Hcl (NALTREXONE HCL) 50 Mg Tablet, 50 MG PO QDAY 02/23/18 Sertraline Hcl (SERTRALINE HCL) 100 Mg Tablet, 150 MG PO QDAY, TAB 02/23/18 Past Medical/Surgical History Patient has a past medical history of seizures, headaches, hypertension, hyperlipidemia, reflux, tinnitus, substance abuse, alcohol abuse, depression, anxiety, cutting. Patient has surgical history of left hand surgery, left knee surgery, LASIK surgery. Hx Smoking: No Smoking Status: Never Smoker Exposure to Second Hand Smoke?: No Hx Substance Use Disorder: Yes Hx Alcohol Use: Yes Constitutional Vital Sign - Last 24 Hours 01/08/19 01/08/19 01/08/19 01/08/19 18:23 18:32 18:32 18:45 Temp 98.6 Pulse ??? 98 Resp 24 B/P (MAP) 167/108 167/108 (127) 148/99 (115) Pulse Ox 91 O2 Delivery Room Air 01/08/19 01/08/19 01/08/19 01/08/19 18:53 19:00 19:15 19:23 Pulse 98 88 B/P (MAP) 143/100 (114) 155/98 (117) Pulse Ox 91 91 01/08/19 01/08/19 01/08/19 19:30 19:45 19:53 Pulse 90 B/P (MAP) 145/100 (115) 158/103 (121) Pulse Ox 92 Physical Exam General/Constitutional: Patient is awake, alert, increased psychomotor agitation Head: Normocephalic and atraumatic. Eyes: Conjunctival clear, Pupils are equal and reactive to light. Extraocular muscles are intact and symmetrical. Sclera are clear and anicteric. Ears:External canals are clear. Tympanic membranes are clear with normal landmarks and light reflex. Nares: As area of slow ooze from the left naris at Little's area Oropharyngeal: Mucous membranes are moist. There is no pharyngeal erythema or exudate. There are no palatal petechiae. Uvula is midline and symmetrical. Neck: Supple, no adenopathy. Cardiovascular: Heart is regular rate and rhythm without audible murmurs, rubs or gallops. Pulmonary: Lungs are clear to auscultation bilaterally. There are no wheezes, rales, or rhonchi. Chest rise is symmetrical Abdomen: Mild epigastric discomfort without guarding or rebound tenderness Extremities: No gross deformities, No peripheral cyanosis. Able to move all 4 extremities. Neuro: Alert and oriented X3, Skin: No rashes, skin is warm dry and well perfused. Psychiatric: No process is logical and goal-directed. Patient has increased psychomotor agitation and twitching of the hands. He denies any audiovisual hallucinations. Denies any suicidal or homicidal ideation. Medical Decision Making Data Points Result Diagram: 01/08/19185301/08/191853 Laboratory Hematology Test 01/08/19 18:30 01/08/19 18:54 Urine Color Straw Urine Clarity Clear Urine pH 6.0 pH (4.8-9.5) Urine Specific [place] 1.005 Urine Protein 100 mg/dL (NEGATIVE) Urine Glucose (UA) Negative mg/dL (NEGATIVE) Urine Ketones 20 mg/dL (NEGATIVE) Urine Blood Small (NEGATIVE) Urine Nitrite Negative (NEGATIVE) Urine Bilirubin Negative (NEGATIVE) Urine Urobilinogen Negative mg/dL (0.2-1.9) Urine Leukocyte Esterase Negative (NEGATIVE) Urine RBC None /HPF (0-2/HPF) Urine WBC <1 /HPF (0-5/HPF) Urine Squamous Epithelial Cells None /LPF (</=FEW) Urine Bacteria Negative /HPF (NONE-FEW) Urine Mucus None /HPF (NONE-FEW) Urine Opiates Screen Negative Urine Barbiturates Screen Negative Ur Tricyclic Antidepressants Screen Negative Urine Phencyclidine Screen Negative Urine Amphetamines Screen Negative Urine Benzodiazepines Screen Negative Urine Cocaine Screen Negative Urine Cannabinoids Screen Negative Red Blood Count 5.00 M/uL (4.00-5.60) Mean Corpuscular Volume 94.3 fL (80.0-96.0) Mean Corpuscular Hemoglobin 32.6 pg (26.0-33.0) Mean Corpuscular Hemoglobin Concent 34.6 g/dL (32.0-36.0) Red Cell Distribution Width 13.4 % (11.5-14.5) Mean Platelet Volume 7.7 fL (7.2-11.1) Neutrophils (%) (Auto) 83.5 % (39.4-72.5) Lymphocytes (%) (Auto) 9.6 % (17.6-49.6) Monocytes (%) (Auto) 5.9 % (4.1-12.4) Eosinophils (%) (Auto) 0.2 % (0.4-6.7) Basophils (%) (Auto) 0.8 % (0.3-1.4) Nucleated RBC Relative Count (auto) 0.1 /100WBC Neutrophils # (Auto) 6.5 K/uL (2.0-7.4) Lymphocytes # (Auto) 0.7 K/uL (1.3-3.6) Monocytes # (Auto) 0.5 K/uL (0.3-1.0) Eosinophils # (Auto) 0.0 K/uL (0.0-0.5) Basophils # (Auto) 0.1 K/uL (0.0-0.1) Nucleated RBC Absolute Count (auto) 0.01 K/uL Prothrombin Time 13.0 seconds (12.0-14.4) Prothromb Time International Ratio 0.99 Activated Partial Thromboplast Time 33 seconds (23-35) Sodium Level 138 mmol/L (137-145) Potassium Level 3.9 mmol/L (3.5-5.0) Chloride Level 101 mmol/L (98-107) Carbon Dioxide Level 20 mmol/L (22-30) Blood Urea Nitrogen 11 mg/dl (9-21) Creatinine 0.80 mg/dl (0.66-1.25) Glomerular Filtration Rate Calc > 60.0 Random Glucose 98 mg/dl (75-110) Calcium Level 8.6 mg/dl (8.4-10.2) Magnesium Level 1.8 mg/dl (1.7-2.2) Total Bilirubin 1.5 mg/dl (0.2-1.3) Aspartate Amino Transf (AST/SGOT) 113 U/L (0-35) Alanine Aminotransferase (ALT/SGPT) 83 U/L (0-56) Alkaline Phosphatase 103 U/L (0-126) Total Protein 7.5 g/dl (6.3-8.2) Albumin 4.6 g/dl (3.5-5.0) Lipase 329 U/L (23-300) Thyroid Stimulating Hormone (TSH) 2.64 uIU/ml (0.46-4.68) Salicylates Level < 10 mg/L Salicylate Last Dose Date unk Acetaminophen Level < 10 ug/ml Serum Alcohol 136 mg/dl Chemistry Test 01/08/19 18:30 01/08/19 18:54 Urine Color Straw Urine Clarity Clear Urine pH 6.0 pH (4.8-9.5) Urine Specific [place] 1.005 Urine Protein 100 mg/dL (NEGATIVE) Urine Glucose (UA) Negative mg/dL (NEGATIVE) Urine Ketones 20 mg/dL (NEGATIVE) Urine Blood Small (NEGATIVE) Urine Nitrite Negative (NEGATIVE) Urine Bilirubin Negative (NEGATIVE) Urine Urobilinogen Negative mg/dL (0.2-1.9) Urine Leukocyte Esterase Negative (NEGATIVE) Urine RBC None /HPF (0-2/HPF) Urine WBC <1 /HPF (0-5/HPF) Urine Squamous Epithelial Cells None /LPF (</=FEW) Urine Bacteria Negative /HPF (NONE-FEW) Urine Mucus None /HPF (NONE-FEW) Urine Opiates Screen Negative Urine Barbiturates Screen Negative Ur Tricyclic Antidepressants Screen Negative Urine Phencyclidine Screen Negative Urine Amphetamines Screen Negative Urine Benzodiazepines Screen Negative Urine Cocaine Screen Negative Urine Cannabinoids Screen Negative White Blood Count 7.7 k/uL (4.5-11.0) Red Blood Count 5.00 M/uL (4.00-5.60) Hemoglobin 16.3 g/dL (14.0-18.0) Hematocrit 47.2 % (42.0-52.0) Mean Corpuscular Volume 94.3 fL (80.0-96.0) Mean Corpuscular Hemoglobin 32.6 pg (26.0-33.0) Mean Corpuscular Hemoglobin Concent 34.6 g/dL (32.0-36.0) Red Cell Distribution Width 13.4 % (11.5-14.5) Platelet Count 186 K/uL (150-450) Mean Platelet Volume 7.7 fL (7.2-11.1) Neutrophils (%) (Auto) 83.5 % (39.4-72.5) Lymphocytes (%) (Auto) 9.6 % (17.6-49.6) Monocytes (%) (Auto) 5.9 % (4.1-12.4) Eosinophils (%) (Auto) 0.2 % (0.4-6.7) Basophils (%) (Auto) 0.8 % (0.3-1.4) Nucleated RBC Relative Count (auto) 0.1 /100WBC Neutrophils # (Auto) 6.5 K/uL (2.0-7.4) Lymphocytes # (Auto) 0.7 K/uL (1.3-3.6) Monocytes # (Auto) 0.5 K/uL (0.3-1.0) Eosinophils # (Auto) 0.0 K/uL (0.0-0.5) Basophils # (Auto) 0.1 K/uL (0.0-0.1) Nucleated RBC Absolute Count (auto) 0.01 K/uL Prothrombin Time 13.0 seconds (12.0-14.4) Prothromb Time International Ratio 0.99 Activated Partial Thromboplast Time 33 seconds (23-35) Glomerular Filtration Rate Calc > 60.0 Calcium Level 8.6 mg/dl (8.4-10.2) Magnesium Level 1.8 mg/dl (1.7-2.2) Total Bilirubin 1.5 mg/dl (0.2-1.3) Aspartate Amino Transf (AST/SGOT) 113 U/L (0-35) Alanine Aminotransferase (ALT/SGPT) 83 U/L (0-56) Alkaline Phosphatase 103 U/L (0-126) Total Protein 7.5 g/dl (6.3-8.2) Albumin 4.6 g/dl (3.5-5.0) Lipase 329 U/L (23-300) Thyroid Stimulating Hormone (TSH) 2.64 uIU/ml (0.46-4.68) Salicylates Level < 10 mg/L Salicylate Last Dose Date unk Acetaminophen Level < 10 ug/ml Serum Alcohol 136 mg/dl Coagulation Test 01/08/19 18:54 Prothrombin Time 13.0 seconds Prothromb Time International Ratio 0.99 Activated Partial Thromboplast Time 33 seconds Toxicology Test 01/08/19 18:30 01/08/19 18:54 Urine Opiates Screen Negative Urine Barbiturates Screen Negative Ur Tricyclic Antidepressants Screen Negative Urine Phencyclidine Screen Negative Urine Amphetamines Screen Negative Urine Benzodiazepines Screen Negative Urine Cocaine Screen Negative Urine Cannabinoids Screen Negative Salicylates Level < 10 mg/L Salicylate Last Dose Date unk Acetaminophen Level < 10 ug/ml Serum Alcohol 136 mg/dl Urinalysis Test 01/08/19 18:30 Urine Color Straw Urine Clarity Clear Urine pH 6.0 pH (4.8-9.5) Urine Specific [place] 1.005 Urine Protein 100 mg/dL (NEGATIVE) Urine Glucose (UA) Negative mg/dL (NEGATIVE) Urine Ketones 20 mg/dL (NEGATIVE) Urine Blood Small (NEGATIVE) Urine Nitrite Negative (NEGATIVE) Urine Bilirubin Negative (NEGATIVE) Urine Urobilinogen Negative mg/dL (0.2-1.9) Urine Leukocyte Esterase Negative (NEGATIVE) Urine RBC None /HPF (0-2/HPF) Urine WBC <1 /HPF (0-5/HPF) Urine Squamous Epithelial Cells None /LPF (</=FEW) Urine Bacteria Negative /HPF (NONE-FEW) Urine Mucus None /HPF (NONE-FEW) ED Course/Re-evaluation ED Course 01/08/2019 6:54:41 pm patient here requesting dilation after beginning to vomit blood. Patient states that he is "self detoxing" at home and then began having some blood from his nose but then also began vomiting blood as well. C was squirting from nursing staff was reported to be 28th patient is hypertensive and borderline tachycardic and has increased tremor. We will give him 2 mg of IV Ativan and 20 mg of IV thiamine at this point. Patient currently is unwilling to come in for detox but I will discuss this further as his workup continues. 01/08/2019 7:22:29 pm patient still not willing to come into the hospital for detox but is willing to talk to someone from behavioral medicine. Long discussion about addiction and recovery I feel that I did make a connection with the patient and my proposed that he will decide to come in to alcohol detox. 01/08/2019 7:35:05 pm CIWA score after 2 mg of IV Ativan is now 11 decreased from 28. 01/08/2019 8:01:25 pm plan at this time patient has agreed to sign in voluntarily to behavioral medicine. Alcohol detox. Given an additional 10 mg of Valium as patient is still somewhat jittery about an 8 on the CIWA score. She has no episodes of further emesis or evidence of active bleeding. Hemodynamical ly he is remained stable. Hemoglobin is stable. Awaiting to speak with the behavioral medicine attending. Decision to Disposition Date: January 08, 2019 Decision to Disposition Time: 20:16 Depart Departure Latest Vital Signs Vital Signs Date Time Temp Pulse Resp B/P (MAP) Pulse Ox O2 Delivery O2 Flow Rate FiO2 01/08/19 19:53 90 92 01/08/19 19:45 158/103 (121) 01/08/19 18:32 98.6 24 Room Air Impression: Primary Impression: Alcohol withdrawal Condition: Improved Disposition: XFER TO [facility] (to DR Jimenez) Problem Qualifiers Primary Impression: Alcohol withdrawal Complication of substance-induced condition: uncomplicated Qualified Codes: F10.230 - Alcohol dependence with withdrawal, uncomplicated MILAGROS CONNORS MD January 08, 2019 18:25
[2019-01-08] MEDS ORDERED: NS(*) 0.9% 1000 ML BAG 1,000 ML IV ONE (18:30)
[2019-01-08] MEDS ORDERED: THIAMINE HCL 200 MG/2 ML INJ IVP ONE (18:30)
[2019-01-08] MEDS ORDERED: LORazepam 2 MG/ML VIAL IVP ONE (18:45)
[2019-01-08 19:10] LABS: PLATELET COUNT, AUTOMATED 186 K/uL (150-450)
[2019-01-08 19:26] LABS: INR 0.99
[2019-01-08] MEDS ORDERED: DIAZEPAM 10 MG TAB PO ONE (20:00)
[2019-01-08 20:15] VITALS: BP 147/100
--- NOTE | 2019-01-08 22:03 | RADIOLOGY IMAGING REPORT ---
FACILITY: [facility] PATIENT NAME: Obie Valencia : 1970 MR: [id number] V: [id number] EXAM DATE: ORDERING PHYSICIAN: MILAGROS CONNORS TECHNOLOGIST: Location: [facility] [place] Patient: Obie Valencia : 1970 Visit/Account:[id number] Date of Sevice: 01/08/2019 EXAMINATION: Portable chest radiograph single view at 1912 hours. HISTORY: Vomiting blood. COMPARISON: 02/23/2018. FINDINGS: A single portable AP view of the chest is obtained. Lines/tubes: None. Lungs/pleura: No focal consolidation or pleural effusion. Heart: Negative. Mediastinum: Negative. Bony structures/body wall: Negative. IMPRESSION: No radiographic evidence of acute cardiopulmonary disease. Report Dictated By: Jennifer Cline MD at 01/08/2019 9:58 PM Report E-Signed By: Jennifer Cline MD at 01/08/2019 9:59 PM WSN:[id number]
== END 2019-01-08 21:16 ==
LOC: ER 18:38
DX: F10.230 Alcohol dependence with withdrawal, uncomplicated (principal); I10 Essential (primary) hypertension; R25.1 Tremor, unspecified
CPT/HCPCS: 71045; 80305; 80320; 80329; 81001; 83690; 83735; 84443; 85025; 85610; 85730; 92284; 96361; 96374; 96375; J2060; J3411; J7030; 82040; 82247; 82310; 82374; 82435; 82565; 82947; 84075; 84132; 84155; 84295; 84450; 84460; 84520; 99284

== ENCOUNTER 2019-01-08 20:35 | Inpatient (IN) | payer OTHER ==
[2016-09-27 10:08] VITALS: Ht 185.4 cm; Wt 104.3 kg
[~2019-01-08] VITALS: Ht 185.4 cm; Wt 104.3 kg
[2019-01-08] MEDS ORDERED: ONDANSETRON 4 MG TAB PO PRN ×2 (21:15→22:10)
[2019-01-08] MEDS ORDERED: DIAZEPAM 10 MG TAB PO PRN ×2 (21:15→22:10)
[2019-01-08] MEDS ORDERED: MAG HYD/AL HYD/SIMETH 30ML UDC PO PRN ×2 (21:15→22:05)
[2019-01-08 21:20] VITALS: BP 160/90
[2019-01-08] MEDS: DIAZEPAM 10 MG TAB PO PRN (23:33)
[2019-01-09] VITALS (7 sets, daily range): BP systolic 134–158; BP diastolic 78–103
[2019-01-09] MEDS: DIAZEPAM 10 MG TAB PO PRN ×5 (00:29→21:00)
[2019-01-09] MEDS: MULTIVITAMINS TAB PO SCH (08:16)
[2019-01-09] MEDS: THIAMINE HCL 100 MG TAB PO SCH (08:16)
[2019-01-09] MEDS: NALTREXONE HCL 50 MG TAB PO SCH (10:51)
[2019-01-09] MEDS: PRAVASTATIN SOD 20 MG TAB PO SCH (10:52)
[2019-01-09] MEDS: SERTRALINE HCL 50 MG TAB PO SCH (10:52)
[2019-01-09] MEDS: IBUPROFEN 600 MG TAB PO PRN (12:00)
[2019-01-09] MEDS ORDERED: LOPERAMIDE HCL 2 MG CAP PO ONE (12:25)
[2019-01-09] MEDS ORDERED: LOPERAMIDE HCL 2 MG CAP PO PRN (12:25)
--- NOTE | 2019-01-09 22:17 | HISTORY AND PHYSICAL ---
DATE OF ADMISSION: January 08, 2019 DATE OF INTERVIEW: January 09, 2019, at 10 a.m. ATTENDING PHYSICIAN Gail Stark MD CHIEF COMPLAINT "I had been doing good, going to , but then I fell off." HISTORY OF PRESENT ILLNESS This is one of multiple psychiatric admissions for this 48-year-old male who has a history of alcohol use disorder and who is here on a voluntary basis for alcohol detox. The patient was last here in May 2018 for a detox. After he left the hospital, he did well with sobriety, attending AA meetings regularly. 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 He stopped going to AA meetings and started to drink again. Most recently, he has been drinking 1 L of hard liquor per day. He did come to the Emergency Room twice in December for complaints related to alcohol abuse, but left without checking in to [facility]. A week ago when he did that, he got into his car to drive away, and the hospital notified police that he was driving intoxicated, and therefore, he was pulled over and arrested and given a DUI. Yesterday, he presented to the ER complaining of vomiting blood. On exam, they did find evidence of a nosebleed; however, his H and H were stable. He did agree to be admitted voluntarily to [facility] for a detox. PAST PSYCHIATRIC HISTORY Multiple [facility] admissions for detox. [facility] [place], [facility] in [place], and the [facility] in [place]. He is currently seeing a doctor through the [facility] via [facility] for medication management. He is not currently in therapy. He had been attending AA meetings up until about a month ago. FAMILY PSYCHIATRIC HISTORY Negative for psychiatric. PAST MEDICAL HISTORY 1. Elevated cholesterol. 2. He is seen once a year at the [facility] for followup. ALLERGIES NKDA. CURRENT MEDICATIONS 1. Naltrexone 50 mg daily. 2. Sertraline 150 mg daily. SOCIAL HISTORY He was born in [place]. His father worked in a government job. He graduated high school in [place], [place]. He has two sisters who live in [place]. He joined the [id number] and served for four years and had an honorable discharge. 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 He has never been , and he lives alone. He has a good relationship with his parents, who live in [place]. LEGAL HISTORY He has three prior DUIs, one in 1997, one in 1999, and one a week ago. He has a court date pending on January 16 for this most recent DUI. VICTIM ISSUES None. SUBSTANCE ABUSE HISTORY He denies use of any other substances other than many years of chronic alcohol consumption. PHYSICAL EXAMINATION Please see the emergency room physician's report. VITAL SIGNS: Temperature 99.3, pulse 98, respiratory rate 16, blood pressure 160/90, pulse ox is 93% on room air. LABORATORY STUDIES Potassium low, 3.4. Calcium low, 7.9. Total bilirubin high, 1.9. AST high, 153. ALT high, 108. Total protein low, 5.9. Albumin low, 3.3. Remainder of chemistry panel is WNL. CBC is within normal limits. Urinalysis is positive for ketones high at 20, small blood. The remainder of the UA is WNL. Tox screen is negative. Serum alcohol is 136. MENTAL STATUS EXAMINATION He is alert, cooperative, and making good eye contact, dressed casually in hospital scrubs. He displays normal psychomotor activity. His speech is normal in rate, tone, and volume. His mood and affect are mildly to moderately depressed. Thought process is logical and goal directed. Thought content is negative for suicidal ideation, homicidal ideation, auditory hallucinations, visual hallucinations, and delusions. He is alert and fully oriented to person, place, time, and situation. Memory is intact for immediate, recent, and remote recall. Intelligence is average based on exam. Insight and judgment are fair. IMPRESSION 1. Alcohol use disorder, severe. 2. Alcohol withdrawal. 3. Persistent depressive disorder. PLAN He is admitted to [facility]. He is being detoxed according to the [facility] protocol using Valium. We will discuss with him outpatient plans following his detox. He will attend individual and group therapies focusing on sobriety skills. His estimated length of stay will be three to five days. [facility]
[2019-01-10 03:45] VITALS: BP 149/105
[2019-01-10] MEDS: DIAZEPAM 10 MG TAB PO PRN (03:54)
[2019-01-10 07:30] VITALS: BP 151/99
[2019-01-10] MEDS: IBUPROFEN 600 MG TAB PO PRN (07:35)
[2019-01-10] MEDS: PRAVASTATIN SOD 20 MG TAB PO SCH (08:15)
[2019-01-10] MEDS: MULTIVITAMINS TAB PO SCH (08:16)
[2019-01-10] MEDS: THIAMINE HCL 100 MG TAB PO SCH (08:16)
[2019-01-10] MEDS: SERTRALINE HCL 50 MG TAB PO SCH (08:16)
[2019-01-10] MEDS: NALTREXONE HCL 50 MG TAB PO SCH (08:16)
[2019-01-10] MEDS ORDERED: PRAV40TA77 PO (11:52)
--- NOTE | 2019-01-11 16:03 | BHS Discharge Summary ---
[facility] Discharge Summary Dlcy-ip-[id number] Encounter Date: January 10, 2019 Zsvd-[id number] Encounter Time: 10:00 Reason-Hosp/Final Diag (DSM-V): (1) Alcohol use disorder, severe, in controlled environment Status: Chronic Hospital Course & Plan: DATE OF ADMISSION: January 08, 2019 DATE OF INTERVIEW: January 09, 2019, at 10 a.m. ATTENDING PHYSICIAN Manuela Marie MD CHIEF COMPLAINT "I had been doing good, going to AA, but then I fell off." HISTORY OF PRESENT ILLNESS This is one of multiple psychiatric admissions for this 48-year-old male who has a history of alcohol use disorder and who is here on a voluntary basis for alcohol detox. The patient was last here in May 2018 for a detox. After he left the hospital, he did well with sobriety, attending AA meetings regularly. 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 He stopped going to AA meetings and started to drink again. Most recently, he has been drinking 1 L of hard liquor per day. He did come to the Emergency Room twice in December for complaints related to alcohol abuse, but left without checking in to [facility]. A week ago when he did that, he got into his car to drive away, and the hospital notified police that he was driving intoxicated, and therefore, he was pulled over and arrested and given a DUI. Yesterday, he presented to the ER complaining of vomiting blood. On exam, they did find evidence of a nosebleed; however, his H and H were stable. He did agree to be admitted voluntarily to [facility] for a detox. PAST PSYCHIATRIC HISTORY Multiple [facility] admissions for detox. Three prior rehab admissions at the [facility] in [place], the [facility] in [place], and the [facility] in [place]. He is currently seeing a doctor through the [facility] via [facility] for med ication management. He is not currently in therapy. He had been attending AA meetings up until about a month ago. HOSPITAL COURSE Pt was admitted to [facility]. He was detoxed using valium via the [facility] protocol. Detox was uncomplicated. There was never any hematemesis and he remained hemodynamically stable. He was cooperative and attended all groups and indivi dual therapy focusing on sobriety skills. He was restarted on his zoloft 150 mg and naltrexone 50 mg, and he will continue these. He will follow up at [facility] and with AA meetings. (2) Alcohol withdrawal Status: Resolved (3) Persistent depressive disorder Status: Chronic Physical Exam Latest Vital Signs Vital Signs 01/09/19 01/10/19 05:32 07:30 Temp 97.3 Pulse 94 Resp 18 B/P (MAP) 151/99 (116) Pulse Ox 94 O2 Delivery Room Air O2 Flow Rate 2.0 Mental Status Exam General Appearance: Casual, Well Groomed, Good Eye Contact, Cooperative, Polite, Good Interaction Speech: Clear, Spontaneous, Normal Rate, Normal Rhythm, Normal Volume, Normal Tone Mood: Euthymic Affect: Full and Appropriate, Calm Thought Process: Organized, Logical, Goal Directed Thought Content: No Suicidal Ideation, No Homicidal Ideation, No Delusions, No Auditory Halllucinations, No Visual Hallucinations, No Thought Broadcasting, No Ideas of Reference, No Obsessions, No Compulsions, No Other Sensorium: Clear Cognition: Alert & Oriented-Person, Alert & Oriented-Place, Alert & Oriented- Time, [id number] Memory: Immediate, Recent, Remote Intelligence: Average Insight Judgment: Good Departure Item Value Date Time White Blood Count 7.7 k/uL 01/08/191853 Red Blood Count 5.00 M/uL 01/08/191853 Hemoglobin 16.3 g/dL 01/08/191853 Hematocrit 47.2 % 01/08/191853 Mean Corpuscular Volume 94.3 fL 01/08/191853 Mean Corpuscular Hemoglobin 32.6 pg 01/08/191853 Mean Corpuscular Hemoglobin Concent 34.6 g/dL 01/08/191853 Red Cell Distribution Width 13.4 % 01/08/191853 Platelet Count 186 K/uL 01/08/191853 Sodium Level 138 mmol/L 01/08/191853 Potassium Level 3.9 mmol/L 01/08/191853 Chloride Level 101 mmol/L 01/08/191853 Carbon Dioxide Level 20 mmol/L L 01/08/191853 Blood Urea Nitrogen 11 mg/dl 01/08/191853 Creatinine 0.80 mg/dl 01/08/191853 Random Glucose 98 mg/dl 5/27/19 1854 Glomerular Filtration Rate Calc > 60.0 01/08/19 1854 Hemoglobin A1c 5.7 % 02/23/18 1335 Calcium Level 8.6 mg/dl 01/08/19 1854 Magnesium Level 1.8 mg/dl 01/08/19 1854 Total Bilirubin 1.5 mg/dl H 01/08/19 1854 Aspartate Amino Transf (AST/SGOT) 113 U/L H 01/08/19 1854 Alanine Aminotransferase (ALT/SGPT) 83 U/L H 01/08/19 1854 Alkaline Phosphatase 103 U/L 01/08/19 1854 Total Protein 7.5 g/dl 01/08/19 1854 Albumin 4.6 g/dl 01/08/19 1854 Thyroid Stimulating Hormone (TSH) 2.64 uIU/ml 01/08/19 1854 Lipase 329 U/L H 01/08/19 1854 Urine Color Straw 01/08/19 1830 Urine Clarity Clear 01/08/19 1830 Urine pH 6.0 pH 01/08/19 1830 Urine Specific [place] 1.005 01/08/19 1830 Urine Protein 100 mg/dL 01/08/19 1830 Urine Glucose (UA) Negative mg/dL 01/08/19 1830 Urine Ketones 20 mg/dL H 01/08/19 1830 Urine Blood Small 01/08/19 1830 Urine Nitrite Negative 01/08/19 1830 Urine Bilirubin Negative 01/08/19 1830 Urine Urobilinogen Negative mg/dL 01/08/19 1830 Urine Leukocyte Esterase Negative 01/08/19 1830 Urine RBC None /HPF 01/08/19 1830 Urine WBC <1 /HPF 01/08/19 1830 Urine Squamous Epithelial Cells None /LPF 01/08/19 1830 Urine Transitional Epithelial Cells Few /LPF 01/06/17 1034 Urine Bacteria Negative /HPF 01/08/19 1830 Urine Mucus None /HPF 01/08/19 1830 Salicylates Level < 10 mg/L 01/08/19 1854 Salicylate Last Dose Date unk 01/08/19 1854 Urine Opiates Screen Negative 01/08/19 1830 Acetaminophen Level < 10 ug/ml 01/08/19 1854 Urine Barbiturates Screen Negative 01/08/19 1830 Ur Tricyclic Antidepressants Screen Negative 5/27/19 1830 Urine Phencyclidine Screen Negative 01/08/191829 Urine Amphetamines Screen Negative 01/08/191829 Urine Benzodiazepines Screen Negative 01/08/191829 Urine Cocaine Screen Negative 01/08/191829 Urine Cannabinoids Screen Negative 01/08/191829 Serum Alcohol 136 mg/dl 01/08/19 185 Condition: Improved Discharge to: Home Discharge Instructions Home Meds Reported Medications Pravastatin Sodium (PRAVACHOL) 40 Mg Tablet, 40 MG PO QAM 01/10/19 Thiamine Hcl (THIAMINE HCL) 100 Mg Tablet, 100 MG PO DAILY 06/10/18 Folic Acid (FOLIC ACID) 1 Mg Tablet, 1 MG PO QDAY, TAB 06/10/18 Milk Thistle Seed Extract (MILK THISTLE) 140 Mg Capsule, 140 MG PO DAILY, CAPSULE 06/07/18 Multivits,Ca,Minerals/Iron/FA (Thera M Plus Tablet) 1 Each Tablet, QAM 02/26/18 Melatonin (MELATONIN) 10 Mg Tablet, 10 MG PO QHS 02/23/18 Naltrexone Hcl (NALTREXONE HCL) 50 Mg Tablet, 50 MG PO QDAY 02/23/18 Sertraline Hcl (SERTRALINE HCL) 100 Mg Tablet, 150 MG PO QDAY, TAB 02/23/18 Multpiple Antipsychotics Used: No Diet: Regular Activity: As Tolerated Special Instructions: Abstain from alcohol. Take medications as prescribed. Follow up with outpatient provider for medication management. Follow up with outpatient therapy. Join AA. Obtain an AA Sponsor & utilize them. Call Crisis Line or return to the ER should symptoms return. MANUELA MARIE MD January 11, 2019 16:03
== END 2019-01-10 12:11 | disposition home or self-care (01) | DRG 897 ==
LOC: BHS 20:35
PROVIDERS: ADMIT Psychiatry & Neurology Psychiatry; ATTEND Psychiatry & Neurology Psychiatry
DX: F10.230 Alcohol dependence with withdrawal, uncomplicated (principal); F34.1 Dysthymic disorder; E78.00 Pure hypercholesterolemia, unspecified